=== PATIENT | female | born 1960 | race Caucasian/White ===

== ENCOUNTER 2016-11-23 13:37 | Emergency (ER) | payer MEDICARE, OTHER ==
[~2016-11-23] VITALS: Ht 157.5 cm; Wt 64.0 kg
[~2016-11-23 13:37] MED LIST: ACYCLOVIR800 MG PO; ALBUTEROL SUL0.083 % IN; AMOXICILLIN500 MG PO; ANAPROX275 MG OR; ATUSS DS OR; AZITHROMYCIN500 MG PO; BACTRIM DS1 TAB OR; CEFTIN500 MG PO; CIPROFLOXACN500 MG PO; COLACE100 MG OR; DENIES MEDICATIONS; DEPAKOTE500 MG OR; DILAUDID4 MG PO; DILAUDID8 MG OR; DOXYCYC MONO100 M1 OR; DOXYCYCL HYC100 MG PO; DUONEB IN; GABAPENTIN300 MG PO; HYDROMORPHON4 MG PO; HYDROMORPHON8 MG PO; LAXATIVE1 TAB OR; LEVAQUIN500 MG PO; LORTAB 5 OR; LORTAB5 OR; MAG CITRATE OR; MEDDOSEPAK PO; MELOXICAM15 MG PO; METAMUCIL28.3 % OR; METHADONE10 M1 PO; MIRALAX3350 NF OR; NEBULIZE1 XX; NEURONTIN400 MG PO; NEURONTIN600 MG PO; NO HOME MEDS; PAXIL20 MG OR; PHENERGAN25 M1 PR; PREDNISONE20 MG PO; PROAIR HFA IN; PROTONIX20 M1 PO; PROVENTIL HFA IN; REGLAN10 MG PO; RESTORIL30 MG OR; ROBITUSSIN AC10 ML PO; SEPTRA DS1 TAB PO; SEROQUEL100 MG OR; SEROQUEL300 MG OR; ULTRAM50 MG OR; VENTOLIN2 MG OR; VISTARIL50 MG OR; ZOFRAN ODT4 MG PO; ZOFRAN4 MG/TAB PO; ZOLOFT50 MG OR
[2016-11-23 14:30] LABS: HEMATOCRIT 36.6 % (37.0-47.0); IMMATURE GRANULOCYTES 0.2 % (0.0-1.0); MEAN CELL VOLUME 86.7 fL CALC (80.0-100.0); MEAN CORPUSCULAR HGB 28.4 pG CALC (26.0-32.0); MEAN CORPUSCULAR HGB CONC 32.8 g/L CALC (32.0-36.0); NEUT# 5.27 thou/uL (2.00-7.15); RED BLOOD COUNT 4.22 mill/uL (4.20-5.60); RED CELL DISTRI WIDTH 12.6 % (11.5-15.5)
[2016-11-23 14:40] LABS: ALBUMIN 4.1 g/dL (3.2-5.0); ALKALINE PHOSPHATASE 108 u/l (38-126); AMYLASE 68 u/l (30-110); ANION GAP 15 (6-22 (CALC)); BILIRUBIN, TOTAL 0.9 mg/dL (0.0-1.4); BUN 21 mg/dL (7-17); BUN/CREATININE RATIO 24 (12-20 (CALC)); CALCIUM 9.3 mg/dL (8.4-10.2); CARBON DIOXIDE 29 mmol/l (22-30); CHLORIDE 101 mmol/l (95-108); CREATININE 0.9 mg/dL (0.5-1.0); GFR > 60 ML/MIN (>=60 (CALC)); GFR FOR AFR.AMER. > 60 ML/MIN (>=60 (CALC)); GLUCOSE 94 mg/dL (65-105); LIPASE 56 u/l (23-300); POTASSIUM 4.7 mmol/l (3.5-5.1); SGOT/AST 61 u/l (14-36); SGPT/ALT 28 u/l (9-52); SODIUM 140 mmol/l (137-146); TOTAL PROTEIN 8.1 g/dL (6.3-8.2)
[2016-11-23 14:49] LABS: URINE BILIRUBIN - DIPSTICK NEGATIVE (NEGATIVE); URINE BLOOD DIPSTICK NEGATIVE (NEGATIVE); URINE CLARITY CLEAR; URINE COLOR YELLOW; URINE GLUCOSE - DIPSTICK NEGATIVE (NEGATIVE); URINE KETONE NEGATIVE (NEGATIVE); URINE LEUK ESTERASE NEGATIVE (NEGATIVE); URINE NITRITE - DIPSTICK NEGATIVE (Negative); URINE PROTEIN - DIPSTICK NEGATIVE (NEG-TRACE); URINE SPECIFIC GRAVITY >=1.030; URINE UROBILINOGEN - DIPSTICK 0.2 E.U./dL (0.2)
[2016-11-23 14:52] LABS: BARBITURATES NEGATIVE (NEGATIVE); COCAINE NEGATIVE (NEGATIVE); METHADONE NEGATIVE (NEGATIVE); TETRAHYDROCANNABIONOL NEGATIVE (NEGATIVE); TRICYLIC ANTIDEPRESSANTS NEGATIVE (NEGATIVE)
[2016-11-23 14:52] LABS: MYOGLOBIN 23 ng/mL (0 - 62)
[2016-11-23 14:53] LABS: OXCYCODONE POSITIVE (NEGATIVE)
[2016-11-23 15:05] VITALS: BP 110/76
== END 2016-11-23 15:05 | disposition left against medical advice (07) ==
LOC: ED 13:37 → ED-I 14:56 → ED 15:05
PROVIDERS: Emergency Medicine
DX: R07.9 Chest pain, unspecified (principal); I10 Essential (primary) hypertension; J44.9 Chronic obstructive pulmonary disease, unspecified; G89.29 Other chronic pain; F11.20 Opioid dependence, uncomplicated; M54.9 Dorsalgia, unspecified; F17.210 Nicotine dependence, cigarettes, uncomplicated; R11.0 Nausea; R06.00 Dyspnea, unspecified

== ENCOUNTER 2016-11-23 18:31 | Observation (INO) | payer MEDICARE, OTHER ==
[~2016-11-23] VITALS: Ht 157.5 cm; Wt 59.1 kg
--- NOTE | 2016-11-23 18:52 | NUR ---
PT TRIAGED, AMBULATES TO ROOM 10
--- NOTE | 2016-11-23 19:15 | NUR ---
PT REMAINS STABLE, RESTING WITH MONITOR IN PLACE. PT STATES SHE WENT HOME TO SHOWER. PT DENIES ANY ACUTE PAIN OR DISCOMFORT.
--- NOTE | 2016-11-23 19:42 | NUR ---
ATTEMPTED X 2 TO GET IV AFTER OTHER STAFF. BLOOD OBTAINED BUT UNABLE TO SAVE SITE
--- NOTE | 2016-11-23 19:45 | NUR ---
PT GIVEN COKE
[2016-11-23 20:01] LABS: ALBUMIN 3.9 g/dL (3.2-5.0); ALKALINE PHOSPHATASE 111 u/l (38-126); ANION GAP 13 (6-22 (CALC)); BILIRUBIN, TOTAL 0.5 mg/dL (0.0-1.4); BUN 24 mg/dL (7-17); BUN/CREATININE RATIO 26 (12-20 (CALC)); CALCIUM 9.1 mg/dL (8.4-10.2); CARBON DIOXIDE 29 mmol/l (22-30); CHLORIDE 102 mmol/l (95-108); CREATININE 0.9 mg/dL (0.5-1.0); GFR > 60 ML/MIN (>=60 (CALC)); GFR FOR AFR.AMER. > 60 ML/MIN (>=60 (CALC)); GLUCOSE 105 mg/dL (65-105); POTASSIUM 3.8 mmol/l (3.5-5.1); SGOT/AST 29 u/l (14-36); SGPT/ALT 30 u/l (9-52); SODIUM 140 mmol/l (137-146); TOTAL PROTEIN 7.4 g/dL (6.3-8.2)
--- NOTE | 2016-11-23 20:10 | NUR ---
PT RESTING, NO DISTRESS AT THIS TIME. PT REMAINS STABLE ON MONITOR.
--- NOTE | 2016-11-23 20:37 | NUR ---
SPOKE TO ADMITTING MD. STATED PT WOULD NOT BE GIVEN METHADONE/DILAUDID AT THIS FACILITY HOWEVER IF PT COULD BRING IT HERE IT WOULD BE ADMINISTERED TO HER.
--- NOTE | 2016-11-23 20:50 | NUR ---
PT DENIES TAKING ANY MEDS AT HOME. PT STATES SHE HASN'T TAKEN METHADONE OR DILAUDID SINCE LAST YEAR.
--- NOTE | 2016-11-23 21:19 | NUR ---
REPORT TO VIVIANE OLIVERA, DENIES ANY QUESTIONS UPON COMPLETION.
[2016-11-23 21:35] VITALS: BP 106/66
--- NOTE | 2016-11-23 21:35 | NUR ---
PT TRANSFERED TO MED SURG W/OUT INCIDENT. NURSING STAFF AT BEDSIDE. DENIES ANY QUESTION UPON COMPLETION. PT THANKED ME FOR MY CARE UPON COMPLETION.
--- NOTE | 2016-11-23 21:35 | NUR ---
RECEIVED PATIENT FROM THE ED IN STABLE CONDITION. PT ARRIVED BY STRETEHER ACCOMPANIED BY ED NURSE. PT SETTLED TO BED, AND ORIENTATE TO ENVIRONMENT, AND CALL SYSTEM. BED IN LOW POSITION AND CALL LIGHT IN REACH. PT DENIES CHEST PAINS. WILL CONTINUE TO MONITOR.
--- NOTE | 2016-11-24 | NUR ---
PATIENT RESTING QUIETLY WITH EYES CLOSED. NO ACUTE DISTRESS NOTED.
[2016-11-24 00:02] VITALS: BP 105/68
--- NOTE | 2016-11-24 04:00 | NUR ---
NO ACUTE CHANGES NOTED IN PATIENT'S CONDITION. LAYING IN BED AND APPEARS NOT TO BE IN ANY DISTRESS OR DISCOMFORT.
[2016-11-24 04:35] VITALS: BP 100/61
[2016-11-24 06:17] LABS: ANION GAP 14 (6-22 (CALC)); BUN 26 mg/dL (7-17); BUN/CREATININE RATIO 33 (12-20 (CALC)); CALCULATED LDLCHOLESTEROL 102 mg/dL (62-129 (CALC)); CARBON DIOXIDE 24 mmol/l (22-30); CHLORIDE 106 mmol/l (95-108); CREATININE 0.8 mg/dL (0.5-1.0); GFR > 60 ML/MIN (>=60 (CALC)); GFR FOR AFR.AMER. > 60 ML/MIN (>=60 (CALC)); GLUCOSE 87 mg/dL (65-105); HDL CHOLESTEROL 33 mg/dL (>=40); MAGNESIUM 1.8 mg/dL (1.6-2.3); POTASSIUM 4.3 mmol/l (3.5-5.1); SODIUM 140 mmol/l (137-146); TOTAL CHOLESTEROL 163 mg/dl (0-199); TOTAL TRIGLYCERIDES 140 mg/dl (30-149); VLDL CHOLESTROL 28 mg/dl (2-49 (CALC))
[2016-11-24 06:50] LABS: COCAINE NEGATIVE (NEGATIVE); METHADONE NEGATIVE (NEGATIVE); TETRAHYDROCANNABIONOL NEGATIVE (NEGATIVE)
[2016-11-24 06:51] LABS: BARBITURATES NEGATIVE (NEGATIVE); OXCYCODONE POSITIVE (NEGATIVE); TRICYLIC ANTIDEPRESSANTS NEGATIVE (NEGATIVE)
--- NOTE | 2016-11-24 07:21 | NUR ---
BEDSIDE REPORT RECEIVED FROM JOSELIN PAN. PT SITTING UPRIGHT IN BED. DENIES PAIN. REPORTING OF CONCERNS ENCOURAGED. PLAN OF CARE DISCUSSED. CALL LIGHT REVIEWED AND IN REACH. PT STATES UNDERSTANDING.
[2016-11-24 08:38] VITALS: BP 111/71
--- NOTE | 2016-11-24 08:52 | NUR ---
PT REPORTS " MELBA JUST BEEN FEELING SO TRIED AND NOT GOOD. I JUST GOT OUT OF A DETOX PLACE AND HAVENT FELT GOOD SINCE." PT STATES THE "DETOX" WAS FOR COMING OFF PAIN MEDICATIONS. INFORMATION REGARDING WITHDRAWL PROVIDED TO PT. PT REQUESTING TRAMADOL FOR GENERALIZED PAIN. PT INFORMED TYLENOL IS WHAT IS ORDERED AND SHOULD BE TRIED FIRST. PT REFUSING.
--- NOTE | 2016-11-24 11:16 | NUR ---
Patient decides to leave AMA. Multiple attempts made to ecourage patient to remain here for continued treatment. Explained to patient all risks of leaving against medical advice including . Pt verbalized understanding of all risks. Pt also encouraged to return to [facility] at any time, especially if symptoms continue or become worse. Pt verbalized understanding.
== END 2016-11-24 11:14 | disposition left against medical advice (07) ==
LOC: ED 18:31 → ED-I 20:30 → ED 20:44 → MS2 20:45
PROVIDERS: Emergency Medicine; ADMIT Internal Medicine; ATTEND Internal Medicine
DX: R07.9 Chest pain, unspecified (principal); I10 Essential (primary) hypertension; J44.9 Chronic obstructive pulmonary disease, unspecified; G89.29 Other chronic pain; M54.9 Dorsalgia, unspecified; F17.210 Nicotine dependence, cigarettes, uncomplicated; F11.20 Opioid dependence, uncomplicated; F41.9 Anxiety disorder, unspecified; F32.9 Major depressive disorder, single episode, unspecified; R11.0 Nausea; H53.9 Unspecified visual disturbance; R06.00 Dyspnea, unspecified; Z91.5 Personal history of self-harm

== ENCOUNTER 2017-07-27 16:25 | Emergency (ER) | payer MEDICARE, OTHER ==
[~2017-07-27] VITALS: Ht 157.5 cm; Wt 57.0 kg
[2017-07-27 17:24] LABS: HEMATOCRIT 36.4 % (37.0-47.0); IMMATURE GRANULOCYTES 0.4 % (0.0-1.0); MEAN CELL VOLUME 87.3 fL CALC (80.0-100.0); MEAN CORPUSCULAR HGB 28.8 pG CALC (26.0-32.0); NEUT# 16.97 thou/uL (2.00-7.15); RED BLOOD COUNT 4.17 mill/uL (4.20-5.60)
[2017-07-27 17:41] LABS: ALBUMIN 4.1 g/dL (3.2-5.0); ALKALINE PHOSPHATASE 130 u/l (38-126); ANION GAP 17 (6-22 (CALC)); BILIRUBIN, TOTAL 0.3 mg/dL (0.0-1.4); BUN 20 mg/dL (7-17); BUN/CREATININE RATIO 21 (12-20 (CALC)); CARBON DIOXIDE 23 mmol/l (22-30); CHLORIDE 107 mmol/l (95-108); CREATININE 0.9 mg/dL (0.5-1.0); GFR > 60 ML/MIN (>=60 (CALC)); GFR FOR AFR.AMER. > 60 ML/MIN (>=60 (CALC)); GLUCOSE 99 mg/dL (65-105); POTASSIUM 4.8 mmol/l (3.5-5.1); SGOT/AST 22 u/l (14-36); SGPT/ALT 18 u/l (9-52); SODIUM 143 mmol/l (137-146); TOTAL PROTEIN 7.1 g/dL (6.3-8.2)
[2017-07-27] MEDS ORDERED: MOTRIN800 MG PO (18:00)
[2017-07-27] MEDS ORDERED: CLINDAMYCIN300 M1 PO (18:00)
[2017-07-27 18:41] VITALS: BP 142/70
== END 2017-07-27 18:50 | disposition home or self-care (01) ==
LOC: ED 16:25
PROVIDERS: Emergency Medicine
DX: M54.2 Cervicalgia (principal); F17.210 Nicotine dependence, cigarettes, uncomplicated

== ENCOUNTER 2017-09-12 15:43 | Emergency (ER) | payer MEDICARE, OTHER ==
[~2017-09-12] VITALS: Ht 157.5 cm; Wt 55.4 kg
[~2017-09-12 15:43] MED LIST changes: +CLINDAMYCIN300 M1 PO; +MOTRIN800 MG PO
[2017-09-12 15:49] VITALS: BP 131/70
== END 2017-09-12 16:20 | disposition left against medical advice (07) ==
LOC: ED 15:43 → LWOBS 16:20
DX: Z91.19 Patient's noncompliance with other medical treatment and regimen (principal)

== ENCOUNTER 2017-12-26 22:42 | Observation (INO) | payer MEDICARE, OTHER ==
[~2017-12-26] VITALS: Ht 157.5 cm; Wt 55.5 kg
[2017-12-26 23:23] LABS: HEMATOCRIT 34.9 % (37.0-47.0); HEMOGLOBIN 11.5 g/dl (12.0-16.0); IMMATURE GRANULOCYTES 1.8 % (0.0-1.0); MEAN CELL VOLUME 84.9 fL CALC (80.0-100.0); NEUT# 8.86 thou/uL (2.00-7.15); RED BLOOD COUNT 4.11 mill/uL (4.20-5.60); RED CELL DISTRI WIDTH 13.8 % (11.5-15.5)
[2017-12-26 23:38] LABS: ALBUMIN 4.1 g/dL (3.2-5.0); BILIRUBIN, TOTAL 0.7 mg/dL (0.0-1.4); BUN 41 mg/dL (7-17); CARBON DIOXIDE 24 mmol/l (22-30); CHLORIDE 100 mmol/l (95-108); SGPT/ALT 466 u/l (9-52); SODIUM 136 mmol/l (137-146); TOTAL PROTEIN 7.7 g/dL (6.3-8.2)
[2017-12-26 23:42] LABS: ANION GAP 15 (6-22 (CALC)); BUN/CREATININE RATIO 22 (12-20 (CALC)); CREATININE 1.9 mg/dL (0.5-1.0); GFR 27 ML/MIN (>=60 (CALC)); GFR FOR AFR.AMER. 33 ML/MIN (>=60 (CALC)); POTASSIUM 3.3 mmol/l (3.5-5.1)
[2017-12-26 23:43] LABS: ALKALINE PHOSPHATASE 482 u/l (38-126); SGOT/AST 599 u/l (14-36)
[2017-12-26 23:48] LABS: MYOGLOBIN 54 ng/mL (0 - 62)
[2017-12-26 23:49] LABS: URINE BILIRUBIN - DIPSTICK NEGATIVE (NEGATIVE); URINE BLOOD DIPSTICK NEGATIVE (NEGATIVE); URINE COLOR YELLOW; URINE GLUCOSE - DIPSTICK NEGATIVE (NEGATIVE); URINE KETONE NEGATIVE (NEGATIVE); URINE LEUK ESTERASE NEGATIVE (NEGATIVE); URINE NITRITE - DIPSTICK NEGATIVE (Negative); URINE PROTEIN - DIPSTICK 30 mg/dL (NEG-TRACE); URINE SPECIFIC GRAVITY 1.025; URINE UROBILINOGEN - DIPSTICK 0.2 E.U./dL (0.2)
[2017-12-26 23:53] LABS: URINE CLARITY SL CLOUDY
[2017-12-27] VITALS (7 sets, daily range): BP systolic 97–153; BP diastolic 63–89
[2017-12-27 00:04] LABS: URINE BACTERIA MODERATE hpf; URINE RBC 0-2 RBC/hpf (0-5); URINE SQUAMOUS EPITHELIAL CELL MODERATE EPI/hpf (0-FEW); URINE WBC 0-2 WBC/hpf (0-5)
[2017-12-27 00:12] LABS: COCAINE NEGATIVE (NEGATIVE); TETRAHYDROCANNABIONOL NEGATIVE (NEGATIVE)
[2017-12-27 00:13] LABS: BARBITURATES NEGATIVE (NEGATIVE); METHADONE NEGATIVE (NEGATIVE); OXCYCODONE POSITIVE (NEGATIVE); TRICYLIC ANTIDEPRESSANTS POSITIVE (NEGATIVE)
[2017-12-27 01:38] LABS: AMYLASE 47 u/l (30-110); LIPASE 42 u/l (23-300)
[2017-12-27 09:42] LABS: CHOLESTEROL HDL RATIO 4.4 (<4.4 (CALC)); MAGNESIUM 1.6 mg/dL (1.6-2.3)
[2017-12-27 10:08] LABS: ALBUMIN 3.8 g/dL (3.2-5.0); BILIRUBIN, TOTAL 0.4 mg/dL (0.0-1.4); CREATININE 1.2 mg/dL (0.5-1.0); TOTAL PROTEIN 7.5 g/dL (6.3-8.2)
[2017-12-27 10:10] LABS: POTASSIUM 4.6 mmol/l (3.5-5.1)
[2017-12-28 04:03] VITALS: BP 115/70
[2017-12-28 04:41] LABS: PROTHROMBIN TIME 10.6 SECONDS (9.0-12.5)
[2017-12-28 04:46] LABS: ALBUMIN 3.2 g/dL (3.2-5.0); ALKALINE PHOSPHATASE 207 u/l (38-126); ANION GAP 11 (6-22 (CALC)); BILIRUBIN, TOTAL 0.2 mg/dL (0.0-1.4); BUN 23 mg/dL (7-17); BUN/CREATININE RATIO 27 (12-20 (CALC)); CARBON DIOXIDE 24 mmol/l (22-30); CHLORIDE 107 mmol/l (95-108); CREATININE 0.9 mg/dL (0.5-1.0); GFR > 60 ML/MIN (>=60 (CALC)); GFR FOR AFR.AMER. > 60 ML/MIN (>=60 (CALC)); POTASSIUM 4.9 mmol/l (3.5-5.1); SGOT/AST 153 u/l (14-36); SGPT/ALT 306 u/l (9-52); SODIUM 137 mmol/l (137-146); TOTAL PROTEIN 6.3 g/dL (6.3-8.2)
[2017-12-28 07:27] VITALS: BP 129/81
[2017-12-28 09:55] LABS: MEAN CELL VOLUME 87.3 fL CALC (80.0-100.0); MEAN CORPUSCULAR HGB 28.2 pG CALC (26.0-32.0); MEAN CORPUSCULAR HGB CONC 32.3 g/L CALC (32.0-36.0); RED BLOOD COUNT 3.55 mill/uL (4.20-5.60); RED CELL DISTRI WIDTH 14.2 % (11.5-15.5)
[2017-12-28] MEDS ORDERED: TRAMADOL HCL50 MG PO (12:25)
[2017-12-28 12:30] VITALS: BP 133/79
== END 2017-12-28 14:12 | disposition home or self-care (01) ==
LOC: ED 22:42 → ED-I 12-27 01:35 → ED 12-27 01:47 → MS2 12-27 01:48
PROVIDERS: Emergency Medicine; Internal Medicine; Nurse Practitioner Family; ADMIT Internal Medicine; ATTEND Internal Medicine
DX: K72.00 Acute and subacute hepatic failure without coma (principal); N17.9 Acute kidney failure, unspecified; B19.20 Unspecified viral hepatitis C without hepatic coma; J44.1 Chronic obstructive pulmonary disease with (acute) exacerbation; E87.6 Hypokalemia; F17.210 Nicotine dependence, cigarettes, uncomplicated; K59.09 Other constipation; E86.0 Dehydration; F11.23 Opioid dependence with withdrawal

== ENCOUNTER 2018-03-04 16:52 | Emergency (ER) | payer MEDICARE, OTHER ==
[~2018-03-04] VITALS: Ht 157.5 cm; Wt 56.0 kg
[~2018-03-04 16:52] MED LIST changes: +TRAMADOL HCL50 MG PO
[2018-03-04 18:08] LABS: URINE BILIRUBIN - DIPSTICK NEGATIVE (NEGATIVE); URINE BLOOD DIPSTICK NEGATIVE (NEGATIVE); URINE COLOR YELLOW; URINE GLUCOSE - DIPSTICK NEGATIVE (NEGATIVE); URINE KETONE NEGATIVE (NEGATIVE); URINE LEUK ESTERASE NEGATIVE (NEGATIVE); URINE NITRITE - DIPSTICK NEGATIVE (Negative); URINE PROTEIN - DIPSTICK TRACE mg/dL (NEG-TRACE); URINE SPECIFIC GRAVITY >=1.030; URINE UROBILINOGEN - DIPSTICK 0.2 E.U./dL (0.2)
[2018-03-04 18:10] LABS: URINE CLARITY CLEAR
[2018-03-04 18:14] LABS: IMMATURE GRANULOCYTES 0.4 % (0.0-5.0); MEAN CELL VOLUME 85.3 fL CALC (80.0-100.0); MEAN CORPUSCULAR HGB 27.9 pG CALC (26.0-32.0); MEAN CORPUSCULAR HGB CONC 32.8 g/L CALC (32.0-36.0); NEUT# 5.51 thou/uL (2.00-7.15); RED BLOOD COUNT 4.69 mill/uL (4.20-5.60); RED CELL DISTRI WIDTH 12.6 % (11.5-15.5)
[2018-03-04 18:17] LABS: HEMOGLOBIN 13.1 g/dl (12.0-16.0)
[2018-03-04 18:21] LABS: COCAINE NEGATIVE (NEGATIVE); METHADONE POSITIVE (NEGATIVE); TETRAHYDROCANNABIONOL NEGATIVE (NEGATIVE)
[2018-03-04 18:22] LABS: BARBITURATES NEGATIVE (NEGATIVE); OXCYCODONE POSITIVE (NEGATIVE); TRICYLIC ANTIDEPRESSANTS NEGATIVE (NEGATIVE)
[2018-03-04 18:33] LABS: ALKALINE PHOSPHATASE 128 u/l (38-126); AMYLASE 81 u/l (30-110); ANION GAP 18 (6-22 (CALC)); BILIRUBIN, TOTAL 0.5 mg/dL (0.0-1.4); BUN 22 mg/dL (7-17); BUN/CREATININE RATIO 20 (12-20 (CALC)); CARBON DIOXIDE 27 mmol/l (22-30); CHLORIDE 98 mmol/l (95-108); CREATININE 1.1 mg/dL (0.5-1.0); GFR 51 ML/MIN (>=60 (CALC)); GFR FOR AFR.AMER. > 60 ML/MIN (>=60 (CALC)); LIPASE 50 u/l (23-300); POTASSIUM 4.2 mmol/l (3.5-5.1); SGPT/ALT 30 u/l (9-52); SODIUM 139 mmol/l (137-146)
[2018-03-04 18:34] LABS: ALBUMIN 4.7 g/dL (3.2-5.0); SGOT/AST 28 u/l (14-36)
[2018-03-04 18:41] LABS: MYOGLOBIN 31 ng/mL (0 - 62)
[2018-03-04 21:31] VITALS: BP 120/91
== END 2018-03-04 19:45 | disposition left against medical advice (07) ==
LOC: ED 16:52
PROVIDERS: Emergency Medicine
DX: R22.1 Localized swelling, mass and lump, neck (principal); M54.9 Dorsalgia, unspecified; J44.9 Chronic obstructive pulmonary disease, unspecified; B19.20 Unspecified viral hepatitis C without hepatic coma; F17.210 Nicotine dependence, cigarettes, uncomplicated; F19.10 Other psychoactive substance abuse, uncomplicated; Z91.19 Patient's noncompliance with other medical treatment and regimen

== ENCOUNTER 2018-05-04 20:43 | Emergency (ER) | payer MEDICARE, OTHER ==
[~2018-05-04] VITALS: Ht 157.5 cm; Wt 50.0 kg
[2018-05-04 21:39] LABS: URINE BILIRUBIN - DIPSTICK NEGATIVE (NEGATIVE); URINE BLOOD DIPSTICK NEGATIVE (NEGATIVE); URINE COLOR YELLOW; URINE GLUCOSE - DIPSTICK NEGATIVE (NEGATIVE); URINE KETONE NEGATIVE (NEGATIVE); URINE LEUK ESTERASE NEGATIVE (NEGATIVE); URINE NITRITE - DIPSTICK NEGATIVE (Negative); URINE PROTEIN - DIPSTICK >=300 mg/dL (NEG-TRACE)
[2018-05-04 21:44] LABS: HEMATOCRIT 45.8 % (37.0-47.0); HEMOGLOBIN 14.7 g/dl (12.0-16.0); IMMATURE GRANULOCYTES 0.3 % (0.0-5.0); MEAN CELL VOLUME 86.7 fL CALC (80.0-100.0); MEAN CORPUSCULAR HGB 27.8 pG CALC (26.0-32.0); MEAN CORPUSCULAR HGB CONC 32.1 g/L CALC (32.0-36.0); NEUT# 10.67 thou/uL (2.00-7.15); RED BLOOD COUNT 5.28 mill/uL (4.20-5.60)
[2018-05-04 21:45] LABS: URINE CLARITY CLEAR
[2018-05-04 21:47] LABS: BARBITURATES NEGATIVE (NEGATIVE); COCAINE NEGATIVE (NEGATIVE); METHADONE NEGATIVE (NEGATIVE); TETRAHYDROCANNABIONOL NEGATIVE (NEGATIVE); TRICYLIC ANTIDEPRESSANTS NEGATIVE (NEGATIVE)
[2018-05-04 21:48] LABS: OXCYCODONE POSITIVE (NEGATIVE)
[2018-05-04 21:59] LABS: URINE SQUAMOUS EPITHELIAL CELL MODERATE EPI/hpf (0-FEW)
[2018-05-04 22:17] LABS: ALBUMIN 4.4 g/dL (3.2-5.0); ALKALINE PHOSPHATASE 94 u/l (38-126); AMYLASE 82 u/l (30-110); ANION GAP 16 (6-22 (CALC)); BILIRUBIN, TOTAL 0.6 mg/dL (0.0-1.4); BUN 19 mg/dL (7-17); BUN/CREATININE RATIO 23 (12-20 (CALC)); CARBON DIOXIDE 26 mmol/l (22-30); CHLORIDE 102 mmol/l (95-108); CREATININE 0.9 mg/dL (0.5-1.0); GFR > 60 ML/MIN (>=60 (CALC)); GFR FOR AFR.AMER. > 60 ML/MIN (>=60 (CALC)); LIPASE 78 u/l (23-300); SGOT/AST 18 u/l (14-36); SODIUM 141 mmol/l (137-146); TOTAL PROTEIN 8.1 g/dL (6.3-8.2)
[2018-05-04] MEDS ORDERED: PHENERGAN25 MG RE (22:46)
[2018-05-04 23:15] VITALS: BP 103/74
== END 2018-05-04 23:14 | disposition home or self-care (01) ==
LOC: ED 20:43
PROVIDERS: Family Medicine
DX: A08.4 Viral intestinal infection, unspecified (principal); J44.9 Chronic obstructive pulmonary disease, unspecified; F17.210 Nicotine dependence, cigarettes, uncomplicated; B19.20 Unspecified viral hepatitis C without hepatic coma

== ENCOUNTER 2018-05-17 19:40 | Emergency (ER) | payer MEDICARE, OTHER ==
[~2018-05-17] VITALS: Ht 157.5 cm; Wt 53.8 kg
[~2018-05-17 19:40] MED LIST changes: +PHENERGAN25 MG RE
[2018-05-17] MEDS ORDERED: MIRALAX3350 N1 PO (22:37)
[2018-05-17] MEDS ORDERED: FLEET ENEMA RE (22:39)
[2018-05-17 22:50] VITALS: BP 99/59
== END 2018-05-17 22:50 | disposition home or self-care (01) ==
LOC: ED 19:40
DX: K59.00 Constipation, unspecified (principal); N81.6 Rectocele; R10.2 Pelvic and perineal pain; R11.2 Nausea with vomiting, unspecified; F17.290 Nicotine dependence, other tobacco product, uncomplicated; R10.84 Generalized abdominal pain; R33.9 Retention of urine, unspecified

== ENCOUNTER 2018-05-19 17:35 | Emergency (ER) | payer MEDICARE, OTHER ==
[~2018-05-19] VITALS: Ht 157.5 cm; Wt 52.7 kg
[~2018-05-19 17:35] MED LIST changes: +FLEET ENEMA RE; +MIRALAX3350 N1 PO
[2018-05-19 20:02] VITALS: BP 127/71
[2018-05-19] MEDS ORDERED: GOLYTELY4000 ML PO (20:03)
[2018-05-19] MEDS ORDERED: TRAMADOL HCL50 MG PO (20:03)
== END 2018-05-19 20:02 | disposition home or self-care (01) ==
LOC: ED 17:35
DX: N81.6 Rectocele (principal); K59.00 Constipation, unspecified; J44.9 Chronic obstructive pulmonary disease, unspecified; B19.20 Unspecified viral hepatitis C without hepatic coma; F17.200 Nicotine dependence, unspecified, uncomplicated

== ENCOUNTER 2018-06-29 18:30 | Emergency (ER) | payer MEDICARE, OTHER ==
[~2018-06-29] VITALS: Ht 157.5 cm; Wt 55.0 kg
[~2018-06-29 18:30] MED LIST changes: +GOLYTELY4000 ML PO
[2018-06-29 18:59] VITALS: BP 133/94
== END 2018-06-29 21:15 | disposition left against medical advice (07) ==
LOC: ED 18:30 → LWOBS 21:14
DX: Z91.19 Patient's noncompliance with other medical treatment and regimen (principal)

== ENCOUNTER 2019-05-22 16:48 | Emergency (ER) | payer MEDICARE, OTHER ==
[~2019-05-22] VITALS: Ht 157.5 cm; Wt 63.0 kg
[2019-05-22] MEDS ORDERED: ELIMITE52 TOP (17:33)
[2019-05-22] MEDS ORDERED: KEFLEX500 M1 PO (17:33)
[2019-05-22 17:35] VITALS: BP 130/95
== END 2019-05-22 17:35 | disposition home or self-care (01) ==
LOC: ED 16:48
DX: L01.00 Impetigo, unspecified (principal); B86 Scabies; B19.20 Unspecified viral hepatitis C without hepatic coma; F17.210 Nicotine dependence, cigarettes, uncomplicated; J44.9 Chronic obstructive pulmonary disease, unspecified

== ENCOUNTER 2019-06-02 20:20 | Observation (INO) | payer MEDICARE, OTHER ==
[~2019-06-02] VITALS: Ht 157.5 cm; Wt 55.9 kg
[~2019-06-02 20:20] MED LIST changes: +ELIMITE52 TOP; +KEFLEX500 M1 PO
--- NOTE | 2019-06-02 20:56 | NUR ---
TO TX ROOM
--- NOTE | 2019-06-02 21:10 | NUR ---
#20 IV INITIATED TO LFA X 2 ATTEMPTS. FINISHED METAL REPAIRER BEDSIDE TO RETRIEVE BLOOD SAMPLES. PT ADMITS TO USING IV OPANA AND DILAUDID TODAY. PT BEING GIVEN NEB TX BY RT. AUDIBLE WHEEZING NOTED. PLAN OF CARE DISCUSSED.
[2019-06-02 21:23] LABS: IMMATURE GRANULOCYTES 0.2 % (0.0-5.0); MEAN CELL VOLUME 87.8 fL CALC (80.0-100.0); MEAN CORPUSCULAR HGB 28.7 pG CALC (26.0-32.0); MEAN CORPUSCULAR HGB CONC 32.7 g/L CALC (32.0-36.0); NEUT# 7.67 thou/uL (2.00-7.15); RED BLOOD COUNT 3.69 mill/uL (4.20-5.60); RED CELL DISTRI WIDTH 12.8 % (11.5-15.5)
[2019-06-02 21:24] LABS: HEMATOCRIT 32.4 % (37.0-47.0); HEMOGLOBIN 10.6 g/dl (12.0-16.0)
--- NOTE | 2019-06-02 22:02 | NUR ---
RECEIVED REPORT. AWAITING RADIOLOGY RESULTS
--- NOTE | 2019-06-02 22:25 | NUR ---
DISCUSSED FINDINGS AND PLAN OF CARE. PT AGREE TO ADMISSION
[2019-06-02] MEDS ORDERED: CEPHALEXIN500 MG PO (22:26)
[2019-06-02] MEDS ORDERED: HYDROXYZ HCL10 MG PO (22:26)
--- NOTE | 2019-06-02 22:28 | NUR ---
JUICE AND CRACKERS GIVEN
--- NOTE | 2019-06-02 22:40 | NUR ---
CALLED MS FOR REPORT. NURSE TO CALL BACK
--- NOTE | 2019-06-02 22:52 | NUR ---
REPORT CALLED TO [facility]
--- NOTE | 2019-06-02 22:58 | NUR ---
TO MS VIA W/C. PT TALKATIVE. NO DISTRESS NOTED
[2019-06-02 23:00] VITALS: BP 114/70
--- NOTE | 2019-06-02 23:00 | NUR ---
PT ARRIVED TO MED SURG UNIT VIA WC ACCOMPANIED BY ED NURSE. PT APPEARS TO BE IN STABLE CONDITION. ELECTRONIC WARFARE OFFICER IN W/PT AT THIS TIME OBTAINING WEIGHT, V/S AND ORIENTING PT TO ROOM, CALL SYSTEM, LIGHTS, BED AND TV. WILL FOLLOW-UP W/ASSESSMENT AND ADMISSION.
[2019-06-03 01:05] VITALS: BP 114/70
--- NOTE | 2019-06-03 01:15 | NUR ---
ENTERED PT ROOM TO ADMINISTER MUSCLE RELAXANT/REQUEST FOR MUSCLE CRAMPS AND PT IS SLEEPING SOUNDLY, PT DID NOT AWAKE TO MY ENTERING ROOM.
[2019-06-03 04:44] VITALS: BP 98/50
--- NOTE | 2019-06-03 04:55 | NUR ---
PT SLEEPING AT THIS TIME. PT MEDICATED ORDERS PROVIDE BUT QUICKLY RETURNED TO SLEEP PRIOR TO MY LEAVING ROOM. NO S/O DISTRESS NOTED.
--- NOTE | 2019-06-03 07:00 | NUR ---
REPORT RECEIVED FROM ARMINDA. PT IS RESTING IN BED WITH NO S/S OF DISTRESS NOTED. PT DENIES NEEDS AT THIS TIME. CALL LIGHT IN REACH.
[2019-06-03 07:38] VITALS: BP 113/66
--- NOTE | 2019-06-03 09:10 | NUR ---
ASSESSMENT DONE. PT IS A&O X3. RESPS EVEN AND UNLABORED. PT STATED PAIN IN BACK AND NECK. MEDICATED PT WITH MOTRIN AND FLEXERIL. PT DENIES ANY OTHER NEEDS AT THIS TIME. CALL LIGHT IN REACH.
--- NOTE | 2019-06-03 10:18 | NUR ---
Patient decides to leave AMA. Explained to patient all risks of leaving against medical Pt verbalized understanding of all risks. Pt also encouraged to return to [facility] at any time, especially if symptoms continue or become worse. Pt verbalized understanding.
--- NOTE | 2019-06-03 10:57 | NUR ---
NOTIFIED NASREEN LAMAR RE: PT LEFT AMA.
== END 2019-06-03 10:18 | disposition left against medical advice (07) ==
LOC: ED 20:20 → ED-I 22:35 → ED 22:40 → MS2 22:42 → ED 22:42 → MS2 06-03 10:18
PROVIDERS: Family Medicine; ADMIT Internal Medicine; ATTEND Internal Medicine
DX: J98.01 Acute bronchospasm (principal); R06.02 Shortness of breath; R05 Cough; R42 Dizziness and giddiness; R53.1 Weakness; J44.9 Chronic obstructive pulmonary disease, unspecified; B19.20 Unspecified viral hepatitis C without hepatic coma; F17.200 Nicotine dependence, unspecified, uncomplicated
CPT/HCPCS: G0378

== ENCOUNTER 2019-09-05 | Emergency (ER) | payer MEDICARE, OTHER ==
[~2019-09-05] MED LIST changes: +CEPHALEXIN500 MG PO; +HYDROXYZ HCL10 MG PO
--- NOTE | 2019-09-05 20:53 | NUR ---
BREATHING TREATMENT GIVEN BACK TO BACK. BREATHING TECH, FOR GOOD DEPOSITION TO THE LUNGS.
[2019-09-05 21:28] LABS: HEMATOCRIT 36.2 % (37.0-47.0); HEMOGLOBIN 11.6 g/dl (12.0-16.0); IMMATURE GRANULOCYTES 0.7 % (0.0-5.0); MEAN CORPUSCULAR HGB 26.1 pG CALC (26.0-32.0); NEUT# 4.92 thou/uL (2.00-7.15); RED BLOOD COUNT 4.44 mill/uL (4.20-5.60); RED CELL DISTRI WIDTH 13.8 % (11.5-15.5)
[2019-09-05 21:38] LABS: MEAN CELL VOLUME 81.5 fL CALC (80.0-100.0)
[2019-09-05 21:42] LABS: ACT PARTIAL THROMBO TIME 29.6 SECONDS (20.0-32.5); D-DIMER 0.31 mg/L (0.19-0.60); PROTHROMBIN TIME 10.7 SECONDS (9.0-12.5)
[2019-09-05 21:57] LABS: ALBUMIN 4.6 g/dL (3.2-5.0); ALKALINE PHOSPHATASE 107 u/l (38-126); BILIRUBIN, TOTAL 0.5 mg/dL (0.0-1.4); BUN 26 mg/dL (7-17); BUN/CREATININE RATIO 22 (12-20 (CALC)); CHLORIDE 100 mmol/l (95-108); CREATININE 1.2 mg/dL (0.5-1.0); GFR 46 ML/MIN (>=60 (CALC)); GFR FOR AFR.AMER. 56 ML/MIN (>=60 (CALC)); POTASSIUM 3.9 mmol/l (3.5-5.1); TOTAL PROTEIN 8.7 g/dL (6.3-8.2)
[2019-09-05 22:01] LABS: ANION GAP 17 (6-22 (CALC)); CARBON DIOXIDE 20 mmol/l (22-30); SGOT/AST 34 u/l (14-36); SODIUM 133 mmol/l (137-146)
[2019-09-05 22:09] LABS: MYOGLOBIN 256 ng/mL (0 - 62)
[2019-09-05] MEDS ORDERED: ROBAXIN-750750 MG PO ×2 (23:18)
[2019-09-05] MEDS ORDERED: ALBUTEROL SUL0.083 % IN ×2 (23:18)
[2019-09-05] MEDS ORDERED: VENTOLIN HFA IN ×2 (23:18)
== END 2019-09-05 23:40 | disposition home or self-care (01) ==
PROVIDERS: Family Medicine
DX: R25.2 Cramp and spasm (principal); J44.1 Chronic obstructive pulmonary disease with (acute) exacerbation; F17.200 Nicotine dependence, unspecified, uncomplicated

== ENCOUNTER 2020-01-10 23:18 | Emergency (ER) | payer MEDICARE, OTHER ==
[~2020-01-10] VITALS: Ht 157.5 cm; Wt 59.0 kg
[~2020-01-10 23:18] MED LIST changes: +ROBAXIN-750750 MG PO; +VENTOLIN HFA IN
[2020-01-10] MEDS ORDERED: VENTOLIN HFA IN ×2 (23:52)
[2020-01-10] MEDS ORDERED: ALBUTEROL SUL0.083 % IN ×2 (23:52)
--- NOTE | 2020-01-11 00:22 | NUR ---
BREATHING TREATMENT GIVEN.
[2020-01-11 00:53] VITALS: BP 152/68
== END 2020-01-11 01:05 | disposition home or self-care (01) ==
LOC: ED 23:18
DX: J44.1 Chronic obstructive pulmonary disease with (acute) exacerbation (principal); L98.9 Disorder of the skin and subcutaneous tissue, unspecified; F17.200 Nicotine dependence, unspecified, uncomplicated

== ENCOUNTER 2020-03-04 01:32 | Observation (INO) | payer MEDICARE, OTHER ==
[~2020-03-04] VITALS: Ht 157.5 cm; Wt 52.2 kg
--- NOTE | 2020-03-04 01:42 | NUR ---
PATIENT AMBULATORY TO ROOM 9 FOR BEDSIDE TRIAGE.
[2020-03-04 02:13] LABS: HEMATOCRIT 32.6 % (37.0-47.0); HEMOGLOBIN 10.8 g/dl (12.0-16.0); IMMATURE GRANULOCYTES 0.5 % (0.0-5.0); MEAN CELL VOLUME 78.7 fL CALC (80.0-100.0); MEAN CORPUSCULAR HGB 26.1 pG CALC (26.0-32.0); MEAN CORPUSCULAR HGB CONC 33.1 g/dL CAL (32.0-36.0); NEUT# 12.67 thou/uL (2.00-7.15); RED BLOOD COUNT 4.14 mill/uL (4.20-5.60); RED CELL DISTRI WIDTH 13.6 % (11.5-15.5)
[2020-03-04 02:30] LABS: ALBUMIN 4.2 g/dL (3.2-5.0); ALKALINE PHOSPHATASE 117 u/l (38-126); AMYLASE 60 u/l (30-110); BUN 26 mg/dL (7-17); BUN/CREATININE RATIO 21 (12-20 (CALC)); CHLORIDE 88 mmol/l (95-108); CREATININE 1.2 mg/dL (0.5-1.0); GFR 46 ML/MIN (>=60 (CALC)); GFR FOR AFR.AMER. 56 ML/MIN (>=60 (CALC)); LIPASE 30 u/l (23-300); SGOT/AST 32 u/l (14-36); TOTAL PROTEIN 8.4 g/dL (6.3-8.2)
[2020-03-04 02:32] LABS: ANION GAP 17 (6-22 (CALC)); BILIRUBIN, TOTAL 0.9 mg/dL (0.0-1.4); CARBON DIOXIDE 25 mmol/l (22-30); SODIUM 126 mmol/l (137-146)
[2020-03-04 02:38] LABS: MYOGLOBIN 130 ng/mL (0 - 62)
--- NOTE | 2020-03-04 02:39 | NUR ---
PT CALMER...DR WAS IN TO DISCUSS ADMISSION.. PT OK WITH ADMISSION. PT FEELS BETTER AFTER THE MORPHINE/NORFLEX.
--- NOTE | 2020-03-04 02:45 | NUR ---
PT REFUSED COVID/FLU SWABS STATES SHE WAS TESTED A FEW MONTHS AGO AN IT HURT.
[2020-03-04 03:03] LABS: URINE BLOOD DIPSTICK SMALL (NEGATIVE); URINE COLOR YELLOW; URINE GLUCOSE - DIPSTICK NEGATIVE (NEGATIVE); URINE KETONE NEGATIVE (NEGATIVE); URINE LEUK ESTERASE TRACE (NEGATIVE); URINE PH 5.5 (4.5-8.0); URINE PROTEIN - DIPSTICK 100 mg/dL (NEG-TRACE); URINE SPECIFIC GRAVITY >=1.030
[2020-03-04 03:10] LABS: URINE BILIRUBIN - DIPSTICK SMALL (NEGATIVE)
[2020-03-04 03:11] LABS: URINE NITRITE - DIPSTICK NEGATIVE (Negative)
[2020-03-04 03:15] LABS: URINE BACTERIA MODERATE hpf; URINE EPITHELIAL CELLS MANY EPI/hpf (0-FEW); URINE MUCUS MODERATE hpf (NONE-FEW)
--- NOTE | 2020-03-04 03:44 | NUR ---
WAITING FOR RAPID COVID TEST TO BE RESULTED.
--- NOTE | 2020-03-04 03:50 | NUR ---
PT REQUESTED SODA/COKE BROUGHT TO ROOM. LIGHTS DIMMED. BED REPOSITIONED FOR COMFORT.
--- NOTE | 2020-03-04 04:22 | NUR ---
PT STATES PAIN IS 610...FALLING ASLEEP SHE SPEAKS. REPORT TO ARMINDA/JOSELIN/MED-SURG.
--- NOTE | 2020-03-04 04:37 | NUR ---
PT UPSET ABOUT BEING PLACED IN COVID PEREIRA. ADULT PROBATION OFFICER AT BEDSIDE.
--- NOTE | 2020-03-04 04:45 | NUR ---
TO FLOOR VIA W/C WITH BELONGINGS. PT MASKED FOR COVID PRECAUTIONS. TO [facility]. NAD. AMBULATORY UPON ARRIVAL TO FLOOR.
--- NOTE | 2020-03-04 04:45 | NUR ---
PT ARRIVED TO MED SURG UNIT VIA WC ACCOMPANIED BY ED NURSE. PT C/O BEING PLACED IN RESPIRATORY PEREIRA, I DISCUSSED THE RISK AND PRECAUTIONS WITH THE PT. PT IS ASKING IF "THE DOCTOR UP HERE ORDERED ANYTHING FOR PAIN?" AND IS ALSO ASKING FOR FOOD AT THIS TIME. PT APPEARS ANXIOUS. DRINKS PROVIDED AND I DISCUSSED MEDICATION SCHEDULE ORDERED W/PT, VERBALIZED UNDERSTANDING. PT IS MOVING AROUND IN THE BED AND ASKING FOR FOOD AGAIN, I INFORMED PT THAT WE WILL PROVIDE SOMETHING TO EAT SOON WE GET HER SETTLED AND ADMISSION/ASSESSMENT COMPLETED. PT VERBALIZED UNDERSTANDING.
[2020-03-04 04:55] VITALS: BP 111/65
--- NOTE | 2020-03-04 05:15 | NUR ---
PT PROVIDED COKE AND TV DINNER PER REQUEST AND ADVISED ON LIGHTING IN ROOM, BSC AT BEDSIDE FOR SAFETY.
--- NOTE | 2020-03-04 07:10 | NUR ---
REPORT RECEIVED FROM JOSELIN HILLIARD.
[2020-03-04 08:28] VITALS: BP 100/57
--- NOTE | 2020-03-04 08:30 | NUR ---
PT RESTING IN SUPINE POSITION,A&O X3 AND DROWSY;VS OBTAINED AND ASSESSMENT COMPLETED;PT REPORTS "RIB/LUNG" PAIN BUT IS UNABLE TO REPORT PAIN LEVEL,PAIN SCALE AND REPORTING EDUCATED;RESPIRATIONS EVEN AND UNLABORED ON O2 @ 2L VIA NC, PT IS NOT O2 DEPENDENT;NON-PRODUCTIVE COUGH AT TIMES;ABDOMEN SOFT ON PALPATION AND ACTIVE IN ALL 4 QUADRANTS, PT DOES NOT REPORT ANY PAIN OR TENDERNESS ON PALPATION;STRONG PEDAL PULSES;OLD/HEALING SCABS NOTED THROUGHOUT BODY;TELE MONITORING IN PLACE;#20G TO RAC INFUSING NS @ 125ML/HR,SITE APPEARS HEALTHY;PT DENIES ANY ADDITIONAL NEEDS AT THIS TIME AND IS ENCOURAGED TO CALL FOR ASSSISTANCE IF NEEDED;CALL LIGHT IN REACH;WILL CONTINUE TO MONITOR
--- NOTE | 2020-03-04 09:51 | NUR ---
PT TRANSPORTED TO [facility] IN STABLE CONDITION VIA WHEELCHAIR ACCOMPANIED BY CORI CROUCH.
--- NOTE | 2020-03-04 09:56 | NUR ---
PT RETURNED BACK TO MED/SURG ROOM 282 IN STABLE CONDITION VIA WHEELCHAIR ACCOMPANIED BY CORI CROUCH.
--- NOTE | 2020-03-04 10:15 | NUR ---
PT REPORTS "LUNG" PAIN AND REQUESTS PAIN MEDICATION, SHEREEN ANRP NOTIFIED OF REQUEST;AWAITING NEW ORDERS;WILL CONTINUE TO MONITOR
[2020-03-04 10:58] VITALS: BP 121/70
--- NOTE | 2020-03-04 11:20 | NUR ---
PT RESTING IN SUPINE POSITION;RESPIRATIONS EVEN AND UNLABORED ON RA;PT REPORTS "RIB" PAIN RATING 9/10 ON THE PAIN SCALE, PT MEDICATED WITH PRN TORADOL 15MG IVP AT THIS TIME;IV FLUIDS CONTINUE TO INFUSE WITH EASE PER ORDER;TELE MONITORING IN PLACE;PT DENIES ANY ADDITIONAL NEEDS AT THIS TIME;ASSESSMENT REMAINS UNCHANGED;FALL PRECAUTIONS REMAIN IN PLACE WITH BED IN THE LOWEST POSITION AND CALL LIGHT IN REACH;WILL CONTINUE TO MONITOR
--- NOTE | 2020-03-04 12:18 | NUR ---
PT CRYING IN BED REPORTING THAT RIB/UPPER ABDOMINAL PAIN HAS NOT BEEN RELEIVED BY PRN TORADOL, PT STATES " I WANNA LEAVE SO I CAN GET MY OWN MEDICATION FROM HOME", PT EDUCATED ON RISKS OF LEAVING [facility] AMA INCLUDING RISKS OF AND VERBALIZES UNDERSTANDING;SHEREEN ANRP NOTIFIED.
[2020-03-04 12:25] LABS: ANION GAP 15 (6-22 (CALC)); BUN 30 mg/dL (7-17); BUN/CREATININE RATIO 33 (12-20 (CALC)); CARBON DIOXIDE 21 mmol/l (22-30); CHLORIDE 98 mmol/l (95-108); CREATININE 0.9 mg/dL (0.5-1.0); GFR > 60 ML/MIN (>=60 (CALC)); GFR FOR AFR.AMER. > 60 ML/MIN (>=60 (CALC)); POTASSIUM 3.8 mmol/l (3.5-5.1); SODIUM 131 mmol/l (137-146)
--- NOTE | 2020-03-04 12:28 | NUR ---
AMA FORMED SIGNED AT THIS TIME WITH WITNESS BY STEPHANIE,JOSELIN;PT EDUCATED ON ELEVATED DDIMER AND THE POSSIBILITY OF HAVING A BLOOD CLOT, PT ENCOURAGED TO STAY AT [facility] FOR FURTHER TESTING SUCH A CTA BUT REFUSES;PT RE-EDUCATED ON THE RISKS OF IF SHE WERE TO HAVE A BLOOD CLOT IN HER LUNGS AND VERBALIZES UNDERSTANDING STATING "I UNDERSTANDING, I NEED TO GO TAKE MY PILLS AT HOME AND ILL COME BACK TO ER";RX FOR LEVAQUIN PROVIDED BY PROVIDER;IV SITE REMOVED WITH CATHETER INTACT AND TELE MONITORING D/C AT THIS TIME;
[2020-03-04] MEDS ORDERED: LEVAQUIN750 MG PO (12:32)
--- NOTE | 2020-03-04 12:37 | NUR ---
Patient decides to leave AMA. Multiple attempts made to ecourage patient to remain here for continued treatment. Explained to patient all risks of leaving against medical advice including . Pt verbalized understanding of all risks. Pt also encouraged to return to [facility] at any time, especially if symptoms continue or become worse. Pt verbalized understanding.
--- NOTE | 2020-03-04 12:37 | NUR ---
SHEREEN ANJAYCOB NOTIFIED OF AMA BY PT;PT LEFT AT THIS TIME VIA WHEELCHAIR ACCOMPANIED BY CORI CROUCH TO LOBBY, FRIEND TO TRANSPORT PT HOME.
--- NOTE | 2020-03-05 08:08 | NUR ---
PRELIM BLOOD CX RESULTS SHOW GRAM POSITIVE COCCI. PT LEFT AMA. RESULTS CALLED TO DR GARCIA. CALLED PT, NO ANSWER, NO VM SET UP. WILL TRY AGAIN THIS AFTERNOON.
--- NOTE | 2020-03-05 14:00 | NUR ---
JUST CALLED PT AGAIN RE BLOOD CX RESULTS. PT ANSWERED THE PHONE, I INTRODUCED MYSELF, AND SHE SAID "I DON'T NEED ANY OF YOUR MEDICINE." I ASKED IF SHE HAD THE ABX FILLED, SHE SAID NO AND THAT SHES IN ANOTHER HOSPITAL NOW. I ASKED WHICH HOSPITAL, SHE TOLD ME IN [facility] AND [facility] UP ON ME.
== END 2020-03-04 12:37 | disposition left against medical advice (07) ==
LOC: ED 01:32 → ED-I 03:24 → ED 03:38 → MS2 03:39
PROVIDERS: Emergency Medicine; Nurse Practitioner; ADMIT Internal Medicine; ATTEND Internal Medicine
DX: E87.1 Hypo-osmolality and hyponatremia (principal); R25.2 Cramp and spasm; R07.81 Pleurodynia; N28.9 Disorder of kidney and ureter, unspecified; R06.02 Shortness of breath; D72.829 Elevated white blood cell count, unspecified; J44.9 Chronic obstructive pulmonary disease, unspecified; F11.20 Opioid dependence, uncomplicated; R78.81 Bacteremia; M19.90 Unspecified osteoarthritis, unspecified site; F17.210 Nicotine dependence, cigarettes, uncomplicated; Z20.828 Contact with and (suspected) exposure to other viral communicable diseases
CPT/HCPCS: G0378

== ENCOUNTER 2020-03-17 07:44 | Observation (INO) | payer MEDICARE, OTHER ==
[~2020-03-17] VITALS: Ht 157.5 cm; Wt 55.0 kg
[~2020-03-17 07:44] MED LIST changes: +LEVAQUIN750 MG PO
--- NOTE | 2020-03-17 07:48 | NUR ---
PATIENT TO ROOM VIA WHEELCHAIR AND PYSICIAN AT BEDSIDE FOR EVAL
--- NOTE | 2020-03-17 08:00 | NUR ---
PT VERY ANXIOUS. UNABLE TO OBTAIN PERIPHERAL ACCESS, WILL SET UP FOR CENTRAL LINE INSERTION PER MD ORDERS.
[2020-03-17 08:30] LABS: URINE BILIRUBIN - DIPSTICK NEGATIVE (NEGATIVE); URINE BLOOD DIPSTICK NEGATIVE (NEGATIVE); URINE COLOR YELLOW; URINE GLUCOSE - DIPSTICK 250 mg/dL (NEGATIVE); URINE KETONE NEGATIVE (NEGATIVE); URINE LEUK ESTERASE NEGATIVE (NEGATIVE); URINE NITRITE - DIPSTICK NEGATIVE (Negative); URINE PH 6.5 (4.5-8.0); URINE PROTEIN - DIPSTICK TRACE mg/dL (NEG-TRACE); URINE SPECIFIC GRAVITY 1.015
--- NOTE | 2020-03-17 09:00 | NUR ---
CENTRAL LINE NOW IN PLACE. MEDS ADMINISTERED. PT LESS ANXIOUS.
[2020-03-17 09:44] LABS: HEMATOCRIT 32.4 % (37.0-47.0); HEMOGLOBIN 9.9 g/dl (12.0-16.0); IMMATURE GRANULOCYTES 0.8 % (0.0-5.0); MEAN CORPUSCULAR HGB 26.3 pG CALC (26.0-32.0); MEAN CORPUSCULAR HGB CONC 30.6 g/dL CAL (32.0-36.0); NEUT# 14.1 thou/uL (2.00-7.15); RED BLOOD COUNT 3.77 mill/uL (4.20-5.60)
[2020-03-17 09:46] LABS: MEAN CELL VOLUME 85.9 fL CALC (80.0-100.0)
[2020-03-17 09:59] LABS: ALBUMIN 3.4 g/dL (3.2-5.0); ALKALINE PHOSPHATASE 145 u/l (38-126); BILIRUBIN, TOTAL 0.6 mg/dL (0.0-1.4); BUN 30 mg/dL (7-17); BUN/CREATININE RATIO 28 (12-20 (CALC)); CHLORIDE 97 mmol/l (95-108); CREATININE 1.1 mg/dL (0.5-1.0); GFR 51 ML/MIN (>=60 (CALC)); GFR FOR AFR.AMER. > 60 ML/MIN (>=60 (CALC)); SGOT/AST 32 u/l (14-36); SODIUM 132 mmol/l (137-146); TOTAL PROTEIN 6.8 g/dL (6.3-8.2)
--- NOTE | 2020-03-17 10:00 | NUR ---
MEDS INFUSING WITHOUT COMPLICATIONS. VITALS STABLE. CONTINUING TO MONITOR.
[2020-03-17 10:01] LABS: ANION GAP 11 (6-22 (CALC)); CARBON DIOXIDE 28 mmol/l (22-30)
[2020-03-17 10:26] LABS: C-REACTIVE PROTEIN > 27.0 mg/dL (0-0.9)
--- NOTE | 2020-03-17 11:58 | NUR ---
REPORT CALLED TO MS [id number], NURSE SCHREIBER. PT TRANSPORTED VIA WHEELCHAIR. BELONGINGS WITH PT. IN MEDS INFUSING WITHOUT COMPLICATION.
--- NOTE | 2020-03-17 12:13 | NUR ---
PT ARRIVED FROM ER VIA STRETCHER ACCOMPANIED BY STAFF.
[2020-03-17 12:32] VITALS: BP 155/80
--- NOTE | 2020-03-17 13:24 | NUR ---
PT WANTS THE "MF THING OUT OF MY NECK NOW".
--- NOTE | 2020-03-17 13:25 | NUR ---
ASSESSMENT IS COMPLTED: PT STATED" I AM HAVING PAIN IN MY LUNG, AND YOU WILL NOT GIVE ME PAIN MEDICATION". INFORMED THE ARPN RE: PAIN MEDICATION. HR IS REG,PULSES ARE STRONG X4, ABD IS SOFT WITH ACTIVE BS. BREATH SOUNDS ARE CLEAR BILATERALLY. TELE MONITOR IN PLACE. CONTINUE TO OSBERVE AND MONITOR.
--- NOTE | 2020-03-17 13:26 | NUR ---
LEFT A MESSAGE FOR DR GARCIA RE: PT WANTING TO LEAVE AMA
--- NOTE | 2020-03-17 13:30 | NUR ---
IV SITE TAKEN OUT OF PT'S NECK. AND PT WAS DRESSED AND READY TO LEAVE.
--- NOTE | 2020-03-17 13:32 | NUR ---
DR GARCIA CALLED BACK, EXPLAINED THE SITUATION. WAS INFORMED TO "LET HER GO".
--- NOTE | 2020-03-17 13:35 | NUR ---
PT WALKED OUT AMA FROM THE UNIT. EXPLAINED RE: THE MEDICATIONS PT WAS ORDERED. SHE CALLED HER RIDE AND TOLD THEM" I AM GETTING THE F OUT OF HERE , THEY AREN'T GIVING ANY PAIN MEDICATION, AND MY LUNG HURTS"
--- NOTE | 2020-03-17 13:40 | NUR ---
Discharge instructions given. Patient verbalizes understanding of same. Discharged in stable condition via Ambulatory to Home with family. All belongings sent with pt.SIGNED OUT AMA
--- NOTE | 2020-03-17 14:17 | NUR ---
S: ANTHONY CONTE is a 59 F who presents with sepsis and pneumonia. She has a history of COPD, intravenous drug abuse, arthritis. All medications in patient's chart were reviewed. O: VS: BP 155/80 mmHg, P 94 bpm, RR20 breaths/min, T 98.1 F W 55 kg, HT 157.48 cm, Scr= 1.1 mg/dL,CrCl= 44 ml/min A: Blood culture is growing MRSA from 03/04 (pt left AMA) P: Patient is on Vancomycin IV. Vancomycin ordered for pharmacy to dose. Start Vancomycin 750 mg IV Q24H. Vancomycin trough is drawn before the 4th dose on 03/20/20 0630. Vancomycin goal trough is between 15-20 mcg/ml. Pharmacy will follow and or advise on antibiotics use as needed.
== END 2020-03-17 13:35 | disposition left against medical advice (07) ==
LOC: ED 07:44 → ED-I 09:40 → ED 10:24 → MS2 10:25
PROVIDERS: Family Medicine; ADMIT Internal Medicine; ATTEND Internal Medicine
PROC: 05HN33Z Insertion of Infusion Device into Left Internal Jugular Vein, Percutaneous Approach (ICD-10-PCS; principal; 2020-03-17)
DX: J44.1 Chronic obstructive pulmonary disease with (acute) exacerbation (principal); J18.9 Pneumonia, unspecified organism; J44.0 Chronic obstructive pulmonary disease with (acute) lower respiratory infection; F11.10 Opioid abuse, uncomplicated; F17.200 Nicotine dependence, unspecified, uncomplicated; Z20.828 Contact with and (suspected) exposure to other viral communicable diseases
CPT/HCPCS: G0378; J0692; J1650; J3370; Q9967

== ENCOUNTER 2020-05-06 17:50 | Emergency (ER) | payer OTHER, MEDICARE ==
[~2020-05-06] VITALS: Ht 157.5 cm; Wt 59.1 kg
[2020-05-06 18:14] LABS: HEMOGLOBIN 10.9 g/dl (12.0-16.0); IMMATURE GRANULOCYTES 0.2 % (0.0-5.0); MEAN CELL VOLUME 83.7 fL CALC (80.0-100.0); MEAN CORPUSCULAR HGB 26.1 pG CALC (26.0-32.0); MEAN CORPUSCULAR HGB CONC 31.1 g/dL CAL (32.0-36.0); NEUT# 4.02 thou/uL (2.00-7.15); RED BLOOD COUNT 4.18 mill/uL (4.20-5.60); RED CELL DISTRI WIDTH 14.9 % (11.5-15.5)
[2020-05-06 18:30] LABS: ALKALINE PHOSPHATASE 110 u/l (38-126); BILIRUBIN, TOTAL 0.6 mg/dL (0.0-1.4); BUN 17 mg/dL (7-17); BUN/CREATININE RATIO 18 (12-20 (CALC)); CHLORIDE 104 mmol/l (95-108); CREATININE 0.9 mg/dL (0.5-1.0); ETHYL ALCOHOL 0 mg/dl (0-30); GFR > 60 ML/MIN (>=60 (CALC)); GFR FOR AFR.AMER. > 60 ML/MIN (>=60 (CALC)); POTASSIUM 4.6 mmol/l (3.5-5.1); SGOT/AST 29 u/l (14-36); SODIUM 138 mmol/l (137-146)
[2020-05-06 18:31] LABS: ALBUMIN 4.6 g/dL (3.2-5.0); ANION GAP 17 (6-22 (CALC)); CARBON DIOXIDE 22 mmol/l (22-30); TOTAL PROTEIN 8.4 g/dL (6.3-8.2)
[2020-05-06 18:58] LABS: ACT PARTIAL THROMBO TIME 21.2 SECONDS (20.0-32.5); PROTHROMBIN TIME 10.1 SECONDS (9.0-12.5)
[2020-05-06] MEDS ORDERED: KEFLEX500 M1 PO (20:17)
[2020-05-06] MEDS ORDERED: LORTAB 1010 MG PO (20:17)
[2020-05-06] MEDS ORDERED: NEOSPORIN PLUS28 GM TOP (20:17)
[2020-05-06 21:01] VITALS: BP 157/83
== END 2020-05-06 21:28 | disposition home or self-care (01) | DRG 605 ==
LOC: ED 17:50
PROC: 0HQKXZZ Repair Right Lower Leg Skin, External Approach (ICD-10-PCS; principal; 2020-05-06)
DX: S81.011A Laceration without foreign body, right knee, initial encounter (principal); S40.211A Abrasion of right shoulder, initial encounter; S50.811A Abrasion of right forearm, initial encounter; S60.812A Abrasion of left wrist, initial encounter; S60.811A Abrasion of right wrist, initial encounter; S30.810A Abrasion of lower back and pelvis, initial encounter; S70.311A Abrasion, right thigh, initial encounter; S80.812A Abrasion, left lower leg, initial encounter; S00.03XA Contusion of scalp, initial encounter; M54.2 Cervicalgia; R91.1 Solitary pulmonary nodule; J44.9 Chronic obstructive pulmonary disease, unspecified; F17.200 Nicotine dependence, unspecified, uncomplicated; V14.4XXA Pedal cycle driver injured in collision with heavy transport vehicle or bus in traffic accident, initial encounter
CPT/HCPCS: Q9967

== ENCOUNTER 2020-05-14 14:50 | Emergency (ER) | payer OTHER, MEDICARE ==
[~2020-05-14] VITALS: Ht 157.5 cm; Wt 54.0 kg
[~2020-05-14 14:50] MED LIST changes: +LORTAB 1010 MG PO; +NEOSPORIN PLUS28 GM TOP
[2020-05-14 15:06] VITALS: BP 155/86
[2020-05-14] MEDS ORDERED: ULTRAM50 M1 PO (15:37)
[2020-05-14] MEDS ORDERED: CYCLOBENZAPRINE10 MG PO (15:37)
== END 2020-05-14 15:40 | disposition home or self-care (01) | DRG 605 ==
LOC: ED 14:50
DX: S40.812A Abrasion of left upper arm, initial encounter (principal); S40.811A Abrasion of right upper arm, initial encounter; S80.812A Abrasion, left lower leg, initial encounter; S80.811A Abrasion, right lower leg, initial encounter; J44.9 Chronic obstructive pulmonary disease, unspecified; F17.210 Nicotine dependence, cigarettes, uncomplicated; V03.90XA Pedestrian on foot injured in collision with car, pick-up truck or van, unspecified whether traffic or nontraffic accident, initial encounter

== ENCOUNTER 2020-08-03 15:39 | Emergency (ER) | payer OTHER, MEDICARE ==
[~2020-08-03] VITALS: Ht 157.5 cm; Wt 52.0 kg
[~2020-08-03 15:39] MED LIST changes: +CYCLOBENZAPRINE10 MG PO; +ULTRAM50 M1 PO
[2020-08-03] MEDS ORDERED: NAPROXEN375 MG PO (17:05)
[2020-08-03 17:15] VITALS: BP 102/58
== END 2020-08-03 17:15 | disposition home or self-care (01) | DRG 552 ==
LOC: ED 15:39
DX: M54.5 Low back pain (principal); G89.29 Other chronic pain; M19.90 Unspecified osteoarthritis, unspecified site; J44.9 Chronic obstructive pulmonary disease, unspecified; F17.290 Nicotine dependence, other tobacco product, uncomplicated

== ENCOUNTER 2020-11-21 23:15 | Emergency (ER) | payer MEDICARE, OTHER ==
[~2020-11-21] VITALS: Ht 157.5 cm; Wt 47.3 kg
[~2020-11-21 23:15] MED LIST changes: +NAPROXEN375 MG PO
[2020-11-22 00:41] LABS: HEMATOCRIT 33.3 % (37.0-47.0); HEMOGLOBIN 10.6 g/dl (12.0-16.0); IMMATURE GRANULOCYTES 0.6 % (0.0-5.0); MEAN CELL VOLUME 84.3 fL CALC (80.0-100.0); MEAN CORPUSCULAR HGB 26.8 pG CALC (26.0-32.0); MEAN CORPUSCULAR HGB CONC 31.8 g/dL CAL (32.0-36.0); NEUT# 5.79 thou/uL (2.00-7.15); RED BLOOD COUNT 3.95 mill/uL (4.20-5.60); RED CELL DISTRI WIDTH 15.7 % (11.5-15.5)
[2020-11-22 00:53] LABS: ALBUMIN 4.3 g/dL (3.2-5.0); BILIRUBIN, TOTAL 0.7 mg/dL (0.0-1.4); CREATININE 1.4 mg/dL (0.5-1.0); POTASSIUM 4.8 mmol/l (3.5-5.1); TOTAL PROTEIN 8.1 g/dL (6.3-8.2)
[2020-11-22] MEDS ORDERED: ORPHENADRINE100 MG PO (01:00)
[2020-11-22] MEDS ORDERED: IBUPROFEN600 MG PO (01:00)
[2020-11-22 01:04] VITALS: BP 167/65
== END 2020-11-22 01:20 | disposition home or self-care (01) ==
LOC: ED 23:15
PROVIDERS: Emergency Medicine
DX: M54.5 Low back pain (principal); J44.9 Chronic obstructive pulmonary disease, unspecified; F17.210 Nicotine dependence, cigarettes, uncomplicated; Z98.1 Arthrodesis status

== ENCOUNTER 2021-04-03 19:26 | Emergency (ER) | payer MEDICARE, OTHER ==
[~2021-04-03] VITALS: Ht 157.5 cm; Wt 57.0 kg
[~2021-04-03 19:26] MED LIST changes: +IBUPROFEN600 MG PO; +ORPHENADRINE100 MG PO
[2021-04-03 20:43] LABS: HEMATOCRIT 34.5 % (37.0-47.0); HEMOGLOBIN 11.4 g/dl (12.0-16.0); IMMATURE GRANULOCYTES 0.3 % (0.0-5.0); MEAN CELL VOLUME 87.3 fL CALC (80.0-100.0); MEAN CORPUSCULAR HGB 28.9 pG CALC (26.0-32.0); NEUT# 5.58 thou/uL (2.00-7.15); RED BLOOD COUNT 3.95 mill/uL (4.20-5.60); RED CELL DISTRI WIDTH 13.4 % (11.5-15.5)
[2021-04-03 21:18] LABS: ALBUMIN 4.4 g/dL (3.2-5.0); BILIRUBIN, TOTAL 0.5 mg/dL (0.0-1.4); CREATININE 1.3 mg/dL (0.5-1.0); POTASSIUM 4.2 mmol/l (3.5-5.1); TOTAL PROTEIN 7.8 g/dL (6.3-8.2)
[2021-04-03] MEDS ORDERED: PREDNISONE50 MG PO (21:32)
[2021-04-03] MEDS ORDERED: VENTOLIN HFA IN (21:32)
[2021-04-03 22:03] VITALS: BP 157/89
== END 2021-04-03 22:27 | disposition home or self-care (01) ==
LOC: ED 19:26
PROVIDERS: Family Medicine
DX: J44.1 Chronic obstructive pulmonary disease with (acute) exacerbation (principal); M25.572 Pain in left ankle and joints of left foot; F17.200 Nicotine dependence, unspecified, uncomplicated; Z20.822 Contact with and (suspected) exposure to COVID-19

== ENCOUNTER 2021-05-09 05:57 | Emergency (ER) | payer MEDICARE, OTHER ==
[~2021-05-09] VITALS: Ht 157.5 cm; Wt 55.0 kg
[~2021-05-09 05:57] MED LIST changes: +PREDNISONE50 MG PO
[2021-05-09 07:14] LABS: ALBUMIN 3.9 g/dL (3.2-5.0); ALKALINE PHOSPHATASE 160 u/l (38-126); ANION GAP 15 (6-22 (CALC)); BILIRUBIN, TOTAL 0.6 mg/dL (0.0-1.4); BUN 19 mg/dL (7-17); BUN/CREATININE RATIO 19 (12-20 (CALC)); CARBON DIOXIDE 25 mmol/l (22-30); CHLORIDE 100 mmol/l (95-108); GFR 57 ML/MIN (>=60 (CALC)); GFR FOR AFR.AMER. > 60 ML/MIN (>=60 (CALC)); HEMATOCRIT 31.1 % (37.0-47.0); HEMOGLOBIN 9.9 g/dl (12.0-16.0); IMMATURE GRANULOCYTES 0.3 % (0.0-5.0); MEAN CELL VOLUME 89.9 fL CALC (80.0-100.0); MEAN CORPUSCULAR HGB 28.6 pG CALC (26.0-32.0); MEAN CORPUSCULAR HGB CONC 31.8 g/dL CAL (32.0-36.0); NEUT# 10.47 thou/uL (2.00-7.15); POTASSIUM 4.3 mmol/l (3.5-5.1); RED BLOOD COUNT 3.46 mill/uL (4.20-5.60); RED CELL DISTRI WIDTH 13.7 % (11.5-15.5); SGOT/AST 26 u/l (14-36); SODIUM 136 mmol/l (137-146); TOTAL PROTEIN 7.1 g/dL (6.3-8.2)
[2021-05-09 08:38] LABS: URINE BILIRUBIN - DIPSTICK NEGATIVE (NEGATIVE); URINE BLOOD DIPSTICK LARGE (NEGATIVE); URINE COLOR YELLOW; URINE GLUCOSE - DIPSTICK NEGATIVE (NEGATIVE); URINE KETONE NEGATIVE (NEGATIVE); URINE LEUK ESTERASE NEGATIVE (NEGATIVE); URINE PROTEIN - DIPSTICK 30 mg/dL (NEG-TRACE); URINE SPECIFIC GRAVITY 1.025; URINE UROBILINOGEN - DIPSTICK 0.2 E.U./dL (0.2)
[2021-05-09 08:42] LABS: URINE NITRITE - DIPSTICK NEGATIVE (Negative)
[2021-05-09 08:53] LABS: URINE SQUAMOUS EPITHELIAL CELL MODERATE EPI/hpf (0-FEW)
[2021-05-09 12:30] VITALS: BP 140/63
== END 2021-05-09 12:30 | disposition short-term general hospital (02) ==
LOC: ED 05:57
PROVIDERS: Emergency Medicine
DX: T81.40XA Infection following a procedure, unspecified, initial encounter (principal); M46.26 Osteomyelitis of vertebra, lumbar region; M46.46 Discitis, unspecified, lumbar region; J44.9 Chronic obstructive pulmonary disease, unspecified; F17.210 Nicotine dependence, cigarettes, uncomplicated; Y83.9 Surgical procedure, unspecified as the cause of abnormal reaction of the patient, or of later complication, without mention of misadventure at the time of the procedure

== ENCOUNTER 2021-07-25 20:54 | Emergency (ER) | payer MEDICARE, MEDICAID ==
[~2021-07-25] VITALS: Ht 157.5 cm; Wt 56.8 kg
[2021-07-25 21:55] LABS: HEMATOCRIT 37.3 % (37.0-47.0); HEMOGLOBIN 11.5 g/dl (12.0-16.0); IMMATURE GRANULOCYTES 0.2 % (0.0-5.0); MEAN CELL VOLUME 89.7 fL CALC (80.0-100.0); MEAN CORPUSCULAR HGB 27.6 pG CALC (26.0-32.0); MEAN CORPUSCULAR HGB CONC 30.8 g/dL CAL (32.0-36.0); NEUT# 10.66 thou/uL (2.00-7.15); RED BLOOD COUNT 4.16 mill/uL (4.20-5.60); RED CELL DISTRI WIDTH 13.8 % (11.5-15.5)
[2021-07-25 22:09] LABS: CREATININE 1.2 mg/dL (0.5-1.0)
[2021-07-25 22:10] LABS: ALBUMIN 4.7 g/dL (3.2-5.0); BILIRUBIN, TOTAL 0.9 mg/dL (0.0-1.4); POTASSIUM 5.3 mmol/l (3.5-5.1); TOTAL PROTEIN 9.2 g/dL (6.3-8.2)
[2021-07-26] MEDS ORDERED: VIBRAMYCIN100 M2 PO (01:42)
[2021-07-26] MEDS ORDERED: GABAPENTIN300 M2 PO (01:42)
[2021-07-26 02:15] VITALS: BP 140/98
== END 2021-07-26 02:20 | disposition home or self-care (01) ==
LOC: ED 20:54
PROVIDERS: Family Medicine
DX: M54.50 Low back pain, unspecified (principal); G89.29 Other chronic pain; J44.1 Chronic obstructive pulmonary disease with (acute) exacerbation; F17.200 Nicotine dependence, unspecified, uncomplicated; Z98.890 Other specified postprocedural states; Z20.822 Contact with and (suspected) exposure to COVID-19

== ENCOUNTER 2022-01-12 19:09 | Emergency (ER) | payer MEDICARE, MEDICAID ==
[2022-01-12] VITALS (7 sets, daily range): BP systolic 116–173; BP diastolic 70–105
[~2022-01-12] VITALS: Ht 157.5 cm; Wt 54.0 kg
[~2022-01-12 19:09] MED LIST changes: +GABAPENTIN300 M2 PO; +VIBRAMYCIN100 M2 PO
[2022-01-12] MEDS ORDERED: AMOXICILLIN500 MG PO (21:25)
[2022-01-12] MEDS ORDERED: LORTAB 1010 MG PO (21:25)
== END 2022-01-12 21:46 | disposition home or self-care (01) ==
LOC: ED 19:09
DX: S93.602A Unspecified sprain of left foot, initial encounter (principal); S93.402A Sprain of unspecified ligament of left ankle, initial encounter; L03.116 Cellulitis of left lower limb; J44.9 Chronic obstructive pulmonary disease, unspecified; G57.82 Other specified mononeuropathies of left lower limb; F17.210 Nicotine dependence, cigarettes, uncomplicated; W19.XXXA Unspecified fall, initial encounter

== ENCOUNTER 2022-01-25 11:50 | Observation (INO) | payer MEDICARE, MEDICAID ==
[2022-01-25] VITALS (12 sets, daily range): BP systolic 94–136; BP diastolic 59–78
[~2022-01-25] VITALS: Ht 157.5 cm; Wt 48.0 kg
--- NOTE | 2022-01-25 11:55 | NUR ---
PT TO ROOM VIA WC
[2022-01-25 12:14] LABS: HEMOGLOBIN 13.3 g/dl (12.0-16.0); MEAN CORPUSCULAR HGB CONC 30.6 g/dL CAL (32.0-36.0); NEUT# 3.56 thou/uL (2.00-7.15); RED BLOOD COUNT 5.32 mill/uL (4.20-5.60)
[2022-01-25 12:35] LABS: HEMATOCRIT 43.5 % (37.0-47.0); MEAN CELL VOLUME 81.8 fL CALC (80.0-100.0)
[2022-01-25 12:41] LABS: ALBUMIN 4.5 g/dL (3.2-5.0); ALKALINE PHOSPHATASE 127 u/l (38-126); BUN 28 mg/dL (7-17); BUN/CREATININE RATIO 20 (12-20 (CALC)); CARBON DIOXIDE 23 mmol/l (22-30); CHLORIDE 101 mmol/l (95-108); CREATININE 1.4 mg/dL (0.5-1.0); GFR FOR AFR.AMER. 46 ML/MIN (>=60 (CALC)); GFR OTHER RACES 38 ML/MIN (>=60 (CALC)); SGOT/AST 45 u/l (14-36); SODIUM 134 mmol/l (137-146); TOTAL PROTEIN 8.7 g/dL (6.3-8.2)
[2022-01-25 12:42] LABS: ANION GAP 14 (6-22 (CALC)); BILIRUBIN, TOTAL 0.4 mg/dL (0.0-1.4); POTASSIUM 4.2 mmol/l (3.5-5.1)
--- NOTE | 2022-01-25 13:30 | NUR ---
PT RESTING ON STRETCHER; MONITORING DEVICES IN PLACE
--- NOTE | 2022-01-25 14:30 | NUR ---
DR NAIR AT BEDSIDE
--- NOTE | 2022-01-25 15:20 | NUR ---
Admission Note Report Given to: JOSELIN GOMEZ Transported by: X Wheelchair Stretcher Transported with: X Nurse Transporter X Patent IV O2 X Dental Mechanic Location: ICU X [facility]
--- NOTE | 2022-01-25 15:25 | NUR ---
RECEIVE PATIENT AND REPORT FROM ER COLP ER NURSE. PATIENT ALERT AND ORIENTED X3. ANY COMPLAINT AT THIS TIME. PATIENT IS EDUCATED ABOUD MEDICATIONS, ADMISSION AND NURSING PLAN. PT REFER JAYNE.
--- NOTE | 2022-01-25 20:10 | NUR ---
PT RECLINING IN BED WATCHING TV. PT IS ABLE TO MOVE AROUND IN BED INDEPENDENTLY. PT STATED SHE IS FEELING CHRONIC DISCOMFORT IN HER LEGS. PT DOESNT APPEAR AGITATED. BREATHING IS NON LABORED AND THERES NO SIGNS OF RESPRITORY DISTRESS. PROVIDED WRAP BECAUSE PT STATED SHE COULDNT EAT THE DINNER PROVIDED. BED RAILS X2 FOR SAFETY. CALL LIGHT WITHIN REACH AND PT EDUCATED ON USE. PT ENCOURAGED TO CALL FOR ASSISTANCE WHEN GOING TO RESTROOM OR OUT OF BED.
--- NOTE | 2022-01-26 04:00 | NUR ---
PT SITTING ON SIDE OF BED UPON ENTRY, VERY AGITATED. SHE STATED SHE WAS NOT RECIEVING HER HOME MEDS, I WENT OVER HER HOME MEDS THAT I HAVE ON FILE. WELL TOLD HER SHE CAN BRING IN HER PRESCIPTIONS FOR THE ATTENDING PHYSICIAN TO GO OVER TO SEE WHAT SHE NEEDS. PT STATED SHE DID NOT WANT TO WAIT AND SAID SHE MAY HAVE TO JUST LEAVE. PATIENT BREATHING WAS NON LABORED, STATED SHE WAS EXPERIENCING CHRONIC PAIN. I GAVE HER A PILLOW TO HELP POSITION HER LEGS/FEET. WILL CONTINUE TO MONITOR. BED RAILS X2 FOR SAFETY UP. CALL LIGHT WITHIN REACH, ENCOURAGED TO USE IT WHEN ASSISTANCE IS NEEDED.
[2022-01-26 04:53] LABS: HEMOGLOBIN 11.5 g/dl (12.0-16.0); IMMATURE GRANULOCYTES 0.4 % (0.0-5.0); MEAN CELL VOLUME 78.8 fL CALC (80.0-100.0); MEAN CORPUSCULAR HGB 25.6 pG CALC (26.0-32.0); MEAN CORPUSCULAR HGB CONC 32.5 g/dL CAL (32.0-36.0); NEUT# 1.6 thou/uL (2.00-7.15); RED BLOOD COUNT 4.49 mill/uL (4.20-5.60); RED CELL DISTRI WIDTH 14.3 % (11.5-15.5)
[2022-01-26 04:55] LABS: HEMATOCRIT 35.4 % (37.0-47.0)
[2022-01-26 05:20] LABS: ALBUMIN 4.2 g/dL (3.2-5.0); C-REACTIVE PROTEIN 0.6 mg/dL (0-0.9); CREATININE 1.2 mg/dL (0.5-1.0); POTASSIUM 4.6 mmol/l (3.5-5.1); TOTAL PROTEIN 7.8 g/dL (6.3-8.2)
[2022-01-26 05:21] LABS: BILIRUBIN, TOTAL 0.2 mg/dL (0.0-1.4)
--- NOTE | 2022-01-26 07:00 | NUR ---
RECEIVE REPORT FROM JOHANN OLIVERA.
[2022-01-26 07:45] VITALS: BP 126/70
--- NOTE | 2022-01-26 08:00 | NUR ---
PATIENT ALERT AND ORIENTED X3. VITAL SIGNS STABLE AT THIS TIME. PT RESTING IN BED PLEASANT. PT IS EDUCATED ABOUD MEDICATIONS AND NURSING PLAN FOR TODAY. PT REFER UNDERSTAND. FALL AND SAFETY PRECAUTIONS IN PLACE. CALL LIGHT IS WITHIN REACH.
[2022-01-26 11:13] VITALS: BP 150/80
[2022-01-26] MEDS ORDERED: LEVAQUIN750 M1 PO (12:23)
[2022-01-26] MEDS ORDERED: PREDNISONE10 MG PO (12:23)
--- NOTE | 2022-01-26 12:30 | NUR ---
PATIENT IS DISCHARGED AT HOME STABLE. PT IS EDUCATED ABOUD MEDICATIOSN AT HOME AND DOCTORS FOLLOW UP. PT REFER UNDERSTAND.
== END 2022-01-26 12:45 | disposition home or self-care (01) ==
LOC: ED 11:50 → ED-I 13:18 → ED 14:29 → MS2 14:30
PROVIDERS: Family Medicine; ADMIT Internal Medicine; ATTEND Internal Medicine
DX: U07.1 COVID-19 (principal); J44.1 Chronic obstructive pulmonary disease with (acute) exacerbation; G62.9 Polyneuropathy, unspecified; M19.90 Unspecified osteoarthritis, unspecified site; F17.210 Nicotine dependence, cigarettes, uncomplicated
CPT/HCPCS: J1650

== ENCOUNTER 2022-12-20 20:02 | Emergency (ER) | payer MEDICARE, MEDICAID ==
[2022-12-20] VITALS (11 sets, daily range): BP systolic 110–147; BP diastolic 71–101
[~2022-12-20] VITALS: Ht 157.5 cm; Wt 54.0 kg
[~2022-12-20 20:02] MED LIST changes: +LEVAQUIN750 M1 PO; +PREDNISONE10 MG PO
[2022-12-20] MEDS ORDERED: OPANA (20:58)
[2022-12-20] MEDS ORDERED: DILAUDID8 MG PO (20:58)
[2022-12-20 21:00] LABS: BASO% 0.6 % (0-3); EOS% 8.2 % (0-8); HEMATOCRIT 35.3 % (37.0-47.0); IMMATURE GRANULOCYTES 0.3 % (0.0-5.0); LYMPH% 16.6 % (15-41); MEAN CORPUSCULAR HGB 26.9 pG CALC (26.0-32.0); MEAN CORPUSCULAR HGB CONC 31.2 g/dL CAL (32.0-36.0); MONO% 8.2 % (2-13); NEUT# 4.59 thou/uL (2.00-7.15); NEUT% 66.1 % (42-76); RED BLOOD COUNT 4.09 mill/uL (4.20-5.60); RED CELL DISTRI WIDTH 14.2 % (11.5-15.5)
[2022-12-20 21:08] LABS: MEAN CELL VOLUME 86.3 fL CALC (80.0-100.0)
[2022-12-20 21:12] LABS: ALBUMIN 4.5 g/dL (3.2-5.0); ALKALINE PHOSPHATASE 109 u/l (38-126); BUN 19 mg/dL (7-17); BUN/CREATININE RATIO 16 (12-20 (CALC)); CHLORIDE 101 mmol/l (95-108); CREATININE 1.2 mg/dL (0.5-1.0); GFR FOR AFR.AMER. 55 ML/MIN (>=60 (CALC)); GFR OTHER RACES 46 ML/MIN (>=60 (CALC)); POTASSIUM 4.5 mmol/l (3.5-5.1); SGOT/AST 38 u/l (14-36); SODIUM 137 mmol/l (137-146); TOTAL PROTEIN 8.1 g/dL (6.3-8.2)
[2022-12-20 21:22] LABS: ANION GAP 13 (6-22 (CALC)); BILIRUBIN, TOTAL 0.3 mg/dL (0.02-1.3); CARBON DIOXIDE 28 mmol/l (22-30)
[2022-12-20 22:18] LABS: URINE BILIRUBIN - DIPSTICK NEGATIVE (NEGATIVE); URINE BLOOD DIPSTICK TRACE-INTACT (NEGATIVE); URINE COLOR YELLOW; URINE GLUCOSE - DIPSTICK NEGATIVE (NEGATIVE); URINE KETONE NEGATIVE (NEGATIVE); URINE LEUK ESTERASE NEGATIVE (NEGATIVE); URINE PROTEIN - DIPSTICK NEGATIVE (NEG-TRACE); URINE UROBILINOGEN - DIPSTICK 0.2 E.U./dL (0.2)
[2022-12-20 22:26] LABS: URINE NITRITE - DIPSTICK NEGATIVE (Negative)
[2022-12-20] MEDS ORDERED: MEDDOSEPAK PO (22:52)
[2022-12-20] MEDS ORDERED: ALBUTEROL SUL0.083 % NEB (22:52)
[2022-12-20] MEDS ORDERED: ZPAK PO (22:52)
== END 2022-12-20 23:03 | disposition left against medical advice (07) ==
LOC: ED 20:02
PROVIDERS: Emergency Medicine
DX: J44.1 Chronic obstructive pulmonary disease with (acute) exacerbation (principal); F17.200 Nicotine dependence, unspecified, uncomplicated; Z20.822 Contact with and (suspected) exposure to COVID-19; Z53.29 Procedure and treatment not carried out because of patient's decision for other reasons

== ENCOUNTER 2023-12-31 02:21 | Emergency (ER) | payer MEDICARE, MEDICAID ==
[~2023-12-31] VITALS: Ht 157.5 cm; Wt 65.0 kg
[2023-12-31] VITALS (7 sets, daily range): BP systolic 151–169; BP diastolic 95–99
[~2023-12-31 02:21] MED LIST changes: +ALBUTEROL SUL0.083 % NEB; +DILAUDID8 MG PO; +OPANA; +PROMETHAZINE HY25 M1 PO; +VENTOLIN HFA108 MCG PO; +ZPAK PO
[2023-12-31] MEDS ORDERED: SODIUM CHLORIDE 0.9% 1,000 ML IV STA ×2 (02:30→05:04)
[2023-12-31] MEDS ORDERED: HYDROmorphone HCL 2 MG/AMP IV STA (02:30)
[2023-12-31] MEDS ORDERED: DiphenhydrAMINE HCL 50 MG/ML SDV IV ONE (02:35)
[2023-12-31] MEDS ORDERED: PROMETHAZINE HCL 25 MG/ML AMP IV ONE (02:35)
[2023-12-31] MEDS ORDERED: KETOROLAC TROMETHAMINE 30 MG/ML SDV IV ONE (02:35)
[2023-12-31 03:16] LABS: BASO% 1.3 % (0-3); EOS% 0.3 % (0-8); HEMATOCRIT 47.5 % (37.0-47.0); HEMOGLOBIN 15.6 g/dl (12.0-16.0); IMMATURE GRANULOCYTES 0.2 % (0.0-5.0); MEAN CELL VOLUME 83.9 fL CALC (80.0-100.0); MEAN CORPUSCULAR HGB 27.6 pG CALC (26.0-32.0); MEAN CORPUSCULAR HGB CONC 32.8 g/dL CAL (32.0-36.0); MONO% 3.8 % (2-13); NEUT# 8.07 thou/uL (2.00-7.15); NEUT% 80.4 % (42-76); RED BLOOD COUNT 5.66 mill/uL (4.20-5.60); RED CELL DISTRI WIDTH 14.1 % (11.5-15.5)
[2023-12-31 03:26] LABS: ALBUMIN 4.8 g/dL (3.2-5.0); BILIRUBIN, TOTAL 0.7 mg/dL (0.02-1.3); CREATININE 1.1 mg/dL (0.5-1.0); POTASSIUM 4.3 mmol/l (3.5-5.1); TOTAL PROTEIN 8.7 g/dL (6.3-8.2)
[2023-12-31] MEDS ORDERED: PROCHLORPERAZINE EDISYLATE 10 MG/2 ML SDV IV ONE (06:15)
[2023-12-31] MEDS ORDERED: HYDROmorphone HCL 2 MG/TAB PO ONE (06:15)
[2023-12-31] MEDS ORDERED: PHENERGAN25 MG RE (06:26)
== END 2023-12-31 06:34 | disposition home or self-care (01) ==
LOC: ED 02:21
PROVIDERS: Family Medicine
DX: R11.2 Nausea with vomiting, unspecified (principal); G62.9 Polyneuropathy, unspecified; F17.200 Nicotine dependence, unspecified, uncomplicated; Z20.822 Contact with and (suspected) exposure to COVID-19

== ENCOUNTER 2024-01-18 17:58 | Emergency (ER) | payer MEDICARE, MEDICAID ==
[~2024-01-18] VITALS: Ht 157.5 cm; Wt 54.4 kg
[2024-01-18] MEDS ORDERED: IPRATROPIUM-Albuterol 0.5MG-2.5MG/3 ML NEB ONE ×2 (18:20)
[2024-01-18] MEDS ORDERED: methylPREDNISolone SODIUM SUCC 125 MG/2 ML SDV IV ONE (18:20)
[2024-01-18] MEDS ORDERED: KETOROLAC TROMETHAMINE 30 MG/ML SDV IV ONE ×2 (18:20→20:25)
[2024-01-18 18:36] VITALS: BP 140/93
[2024-01-18 18:54] LABS: URINE BILIRUBIN - DIPSTICK Negative (NEGATIVE); URINE BLOOD DIPSTICK Negative (NEGATIVE); URINE COLOR Yellow; URINE GLUCOSE - DIPSTICK Negative (NEGATIVE); URINE KETONE Negative (NEGATIVE); URINE LEUK ESTERASE Small (NEGATIVE); URINE NITRITE - DIPSTICK Negative (Negative); URINE PROTEIN - DIPSTICK Negative (NEG-TRACE); URINE SPECIFIC GRAVITY <=1.005; URINE UROBILINOGEN - DIPSTICK 0.2 E.U./dL (0.2)
[2024-01-18 19:01] LABS: URINE RBC 0-2 RBC/hpf (0-5); URINE SQUAMOUS EPITHELIAL CELL FEW EPI/hpf (0-FEW)
[2024-01-18 19:10] LABS: BASO% 0.7 % (0-3); EOS% 5.1 % (0-8); HEMATOCRIT 45.3 % (37.0-47.0); HEMOGLOBIN 14.4 g/dl (12.0-16.0); IMMATURE GRANULOCYTES 0.2 % (0.0-5.0); LYMPH% 29.2 % (15-41); MEAN CELL VOLUME 86.1 fL CALC (80.0-100.0); MEAN CORPUSCULAR HGB 27.4 pG CALC (26.0-32.0); MEAN CORPUSCULAR HGB CONC 31.8 g/dL CAL (32.0-36.0); MONO% 7.2 % (2-13); NEUT# 6.07 thou/uL (2.00-7.15); NEUT% 57.6 % (42-76); RED BLOOD COUNT 5.26 mill/uL (4.20-5.60); RED CELL DISTRI WIDTH 13.5 % (11.5-15.5)
[2024-01-18] MEDS ORDERED: SODIUM CHLORIDE 0.9% 1,000 ML IV ONE (19:15)
[2024-01-18 19:27] LABS: ALBUMIN 4.8 g/dL (3.2-5.0); BILIRUBIN, TOTAL 0.5 mg/dL (0.02-1.3); CREATININE 1.2 mg/dL (0.5-1.0); MAGNESIUM 1.9 mg/dL (1.6-2.3); POTASSIUM 4.5 mmol/l (3.5-5.1)
[2024-01-18] MEDS ORDERED: DICYCLOMINE HCL 20 MG/2 ML VIAL IM ONE (22:00)
[2024-01-18] MEDS ORDERED: MAGNESIUM SULFATE HEPTAHYDRATE 2 GM in SODIUM CHLORIDE 0.9% 50 ML IV ONE (22:00)
[2024-01-18] MEDS ORDERED: ALBUTEROL SULFATE 2.5 MG VIAL NEB ONE (22:00)
[2024-01-18 22:16] VITALS: BP 140/93
== END 2024-01-18 22:16 | disposition left against medical advice (07) ==
LOC: ED 17:58
PROVIDERS: Family Medicine; Internal Medicine
DX: J44.1 Chronic obstructive pulmonary disease with (acute) exacerbation (principal); R10.9 Unspecified abdominal pain; R00.0 Tachycardia, unspecified; R79.9 Abnormal finding of blood chemistry, unspecified; I10 Essential (primary) hypertension; G62.9 Polyneuropathy, unspecified; F17.210 Nicotine dependence, cigarettes, uncomplicated; Z53.29 Procedure and treatment not carried out because of patient's decision for other reasons

== ENCOUNTER 2024-01-21 09:20 | Emergency (ER) | payer MEDICARE, MEDICAID ==
[~2024-01-21] VITALS: Ht 157.5 cm; Wt 54.4 kg
[2024-01-21 09:32] VITALS: BP 181/106
[2024-01-21 09:34] VITALS: BP 154/107
[2024-01-21] MEDS ORDERED: ALBUTEROL SULFATE 2.5 MG VIAL NEB ONE (09:35)
[2024-01-21 09:36] VITALS: BP 154/107
[2024-01-21] MEDS ORDERED: methylPREDNISolone SODIUM SUCC 125 MG/2 ML SDV IM ONE (09:40)
== END 2024-01-21 09:36 | disposition left against medical advice (07) ==
LOC: ED 09:20
DX: J44.1 Chronic obstructive pulmonary disease with (acute) exacerbation (principal); G89.29 Other chronic pain; M54.50 Low back pain, unspecified; F11.10 Opioid abuse, uncomplicated; G62.9 Polyneuropathy, unspecified; F17.200 Nicotine dependence, unspecified, uncomplicated; Z53.29 Procedure and treatment not carried out because of patient's decision for other reasons

== ENCOUNTER 2024-02-14 21:53 | Emergency (ER) | payer MEDICARE, MEDICAID ==
[~2024-02-14] VITALS: Ht 157.5 cm; Wt 55.0 kg
[2024-02-14] MEDS ORDERED: SODIUM CHLORIDE 0.9% 1,000 ML IV ONE (22:05)
[2024-02-14] MEDS ORDERED: DiphenhydrAMINE HCL 50 MG/ML SDV IV ONE (22:05)
[2024-02-14] MEDS ORDERED: PROMETHAZINE HCL 25 MG/ML AMP IV ONE (22:05)
[2024-02-14 22:30] VITALS: BP 120/74
[2024-02-14 23:02] LABS: BASO% 0.5 % (0-3); EOS% 3.3 % (0-8); HEMATOCRIT 40.1 % (37.0-47.0); HEMOGLOBIN 12.5 g/dl (12.0-16.0); IMMATURE GRANULOCYTES 0.2 % (0.0-5.0); LYMPH% 14.9 % (15-41); MEAN CORPUSCULAR HGB 27.1 pG CALC (26.0-32.0); MEAN CORPUSCULAR HGB CONC 31.2 g/dL CAL (32.0-36.0); MONO% 6.9 % (2-13); NEUT# 7.88 thou/uL (2.00-7.15); NEUT% 74.2 % (42-76); RED BLOOD COUNT 4.61 mill/uL (4.20-5.60); RED CELL DISTRI WIDTH 13.5 % (11.5-15.5)
[2024-02-14 23:18] LABS: ALBUMIN 4.6 g/dL (3.2-5.0); ALKALINE PHOSPHATASE 99 u/l (38-126); ANION GAP 14 (6-22 (CALC)); BILIRUBIN, TOTAL 0.6 mg/dL (0.02-1.3); BUN 35 mg/dL (8-23); BUN/CREATININE RATIO 13 (12-20 (CALC)); CARBON DIOXIDE 24 mmol/l (22-30); CHLORIDE 103 mmol/l (95-108); CREATININE 2.8 mg/dL (0.5-1.0); ESTIMATED GFR 19 ML/MIN (>=90 (CALC)); ETHYL ALCOHOL 0 mg/dl (0-30); POTASSIUM 4.9 mmol/l (3.5-5.1); SGOT/AST 29 u/l (9-36); SODIUM 135 mmol/l (137-146); TOTAL PROTEIN 7.9 g/dL (6.3-8.2)
[2024-02-14] MEDS ORDERED: ONDANSETRON 4 MG/TAB ODT PO ONE (23:55)
[2024-02-15] MEDS ORDERED: LACTATED RINGER'S 1,000 ML IV ONE (01:55)
[2024-02-15 03:42] LABS: URINE BILIRUBIN - DIPSTICK Negative (NEGATIVE); URINE BLOOD DIPSTICK Trace-lysed (NEGATIVE); URINE COLOR Yellow; URINE GLUCOSE - DIPSTICK Negative (NEGATIVE); URINE KETONE Negative (NEGATIVE); URINE LEUK ESTERASE Small (NEGATIVE); URINE PH 5.5 (4.5-8.0); URINE PROTEIN - DIPSTICK 30 mg/dL (NEG-TRACE); URINE SPECIFIC GRAVITY 1.025; URINE UROBILINOGEN - DIPSTICK 0.2 E.U./dL (0.2)
[2024-02-15 03:43] LABS: URINE NITRITE - DIPSTICK Negative (Negative)
[2024-02-15 03:47] LABS: URINE EPITHELIAL CELLS MANY EPI/hpf (0-FEW)
[2024-02-15 03:48] LABS: URINE BACTERIA MODERATE hpf
[2024-02-15] MEDS ORDERED: ONDANSETRON4 MG PO (04:04)
[2024-02-15] MEDS ORDERED: HYDROmorphone HCL 2 MG/TAB PO ONE (04:10)
[2024-02-15 04:58] VITALS: BP 125/76
== END 2024-02-15 04:58 | disposition home or self-care (01) ==
LOC: ED 21:53
PROVIDERS: Family Medicine
DX: E86.0 Dehydration (principal); G62.9 Polyneuropathy, unspecified; F17.200 Nicotine dependence, unspecified, uncomplicated; Z20.822 Contact with and (suspected) exposure to COVID-19

== ENCOUNTER 2024-03-04 14:33 | Emergency (ER) | payer MEDICARE, MEDICAID ==
[~2024-03-04] VITALS: Ht 157.5 cm; Wt 53.5 kg
[~2024-03-04 14:33] MED LIST changes: +ONDANSETRON4 MG PO
[2024-03-04 14:43] VITALS: BP 170/101
[2024-03-04 14:45] VITALS: BP 165/106
[2024-03-04] MEDS ORDERED: ONDANSETRON HCl 4 MG/2 ML SDV IV ONE (14:50)
[2024-03-04] MEDS ORDERED: HYDROmorphone HCL 2 MG/AMP IV ONE (14:50)
[2024-03-04] MEDS ORDERED: SODIUM CHLORIDE 0.9% 500 ML IV ONE (15:00)
[2024-03-04 15:22] LABS: BASO% 0.5 % (0-3); EOS% 1.1 % (0-8); HEMATOCRIT 43.1 % (37.0-47.0); HEMOGLOBIN 13.9 g/dl (12.0-16.0); IMMATURE GRANULOCYTES 0.3 % (0.0-5.0); LYMPH% 16.1 % (15-41); MEAN CELL VOLUME 82.9 fL CALC (80.0-100.0); MEAN CORPUSCULAR HGB 26.7 pG CALC (26.0-32.0); MEAN CORPUSCULAR HGB CONC 32.3 g/dL CAL (32.0-36.0); MONO% 4.1 % (2-13); NEUT# 8.51 thou/uL (2.00-7.15); NEUT% 77.9 % (42-76); RED BLOOD COUNT 5.2 mill/uL (4.20-5.60); RED CELL DISTRI WIDTH 12.9 % (11.5-15.5)
[2024-03-04 15:36] LABS: ALBUMIN 4.6 g/dL (3.2-5.0); ALKALINE PHOSPHATASE 105 u/l (38-126); ANION GAP 12 (6-22 (CALC)); BILIRUBIN, TOTAL 0.8 mg/dL (0.02-1.3); BUN 23 mg/dL (8-23); CARBON DIOXIDE 24 mmol/l (22-30); CHLORIDE 105 mmol/l (95-108); ESTIMATED GFR 51 ML/MIN (>=90 (CALC)); LIPASE 80 u/l (23-300); POTASSIUM 4.6 mmol/l (3.5-5.1); SGOT/AST 38 u/l (9-36); SODIUM 137 mmol/l (137-146); TOTAL PROTEIN 8.4 g/dL (6.3-8.2)
[2024-03-04 15:45] LABS: BUN/CREATININE RATIO 19 (12-20 (CALC)); CREATININE 1.2 mg/dL (0.5-1.0)
[2024-03-04] MEDS ORDERED: ONDANSETRON 4 MG/TAB ODT SL ONE (15:45)
[2024-03-04] MEDS ORDERED: HYDROmorphone HCL 2 MG/AMP IM ONE (15:45)
[2024-03-04 15:51] VITALS: BP 148/98
[2024-03-04 16:00] VITALS: BP 156/98
[2024-03-04] MEDS ORDERED: ZOFRAN4 MG/TAB PO (16:26)
[2024-03-04 16:30] VITALS: BP 156/98
== END 2024-03-04 16:46 | disposition home or self-care (01) ==
LOC: ED 14:33
PROVIDERS: Family Medicine
DX: R11.2 Nausea with vomiting, unspecified (principal); G62.9 Polyneuropathy, unspecified; F17.200 Nicotine dependence, unspecified, uncomplicated; Z20.822 Contact with and (suspected) exposure to COVID-19

== ENCOUNTER 2024-03-04 20:20 | Emergency (ER) | payer MEDICARE, MEDICAID ==
[~2024-03-04] VITALS: Ht 157.5 cm; Wt 50.0 kg
[2024-03-04 20:39] VITALS: BP 155/105
[2024-03-04 20:41] VITALS: BP 144/105
[2024-03-04 21:00] VITALS: BP 151/104
[2024-03-04] MEDS ORDERED: DiphenhydrAMINE HCL 50 MG/ML SDV IV ONE ×2 (21:00→22:05)
[2024-03-04] MEDS ORDERED: METOCLOPRAMIDE HCL 10 MG/2 ML SDV IV ONE ×2 (21:00→22:05)
[2024-03-04] MEDS ORDERED: LACTATED RINGER'S 1,000 ML IV ONE ×2 (21:00)
[2024-03-04] MEDS ORDERED: ONDANSETRON HCl 4 MG/2 ML SDV IV ONE (21:00)
[2024-03-04] MEDS ORDERED: HYDROmorphone HCL 2 MG/AMP IV ONE (21:20)
[2024-03-04] MEDS ORDERED: DEXAMETHASONE SODIUM PHOSPHATE 4 MG/VIAL SDV IV ONE (22:05)
[2024-03-04 22:30] VITALS: BP 149/84
[2024-03-04 23:00] VITALS: BP 165/94
[2024-03-04 23:29] LABS: URINE BILIRUBIN - DIPSTICK Negative (NEGATIVE); URINE BLOOD DIPSTICK Trace-intact (NEGATIVE); URINE GLUCOSE - DIPSTICK Negative (NEGATIVE); URINE KETONE Negative (NEGATIVE); URINE LEUK ESTERASE Negative (NEGATIVE); URINE NITRITE - DIPSTICK Negative (Negative); URINE PH >=9.0 (4.5-8.0); URINE PROTEIN - DIPSTICK 100 mg/dL (NEG-TRACE); URINE SPECIFIC GRAVITY 1.015; URINE UROBILINOGEN - DIPSTICK 0.2 E.U./dL (0.2)
[2024-03-04 23:30] VITALS: BP 168/101
[2024-03-04 23:30] LABS: URINE COLOR Yellow
[2024-03-04 23:39] LABS: URINE BACTERIA FEW hpf; URINE SQUAMOUS EPITHELIAL CELL FEW EPI/hpf (0-FEW); URINE WBC 0-2 WBC/hpf (0-5)
[2024-03-05] VITALS: BP 160/105
[2024-03-05 00:31] VITALS: BP 156/95
[2024-03-05 00:46] LABS: ALBUMIN 5.1 g/dL (3.2-5.0); ALKALINE PHOSPHATASE 121 u/l (38-126); ANION GAP 16 (6-22 (CALC)); BILIRUBIN, TOTAL 0.8 mg/dL (0.02-1.3); BUN 22 mg/dL (8-23); BUN/CREATININE RATIO 18 (12-20 (CALC)); CARBON DIOXIDE 27 mmol/l (22-30); CHLORIDE 101 mmol/l (95-108); CREATININE 1.3 mg/dL (0.5-1.0); ESTIMATED GFR 46 ML/MIN (>=90 (CALC)); POTASSIUM 4.4 mmol/l (3.5-5.1); SGOT/AST 36 u/l (9-36); SODIUM 140 mmol/l (137-146); TOTAL PROTEIN 9.7 g/dL (6.3-8.2)
[2024-03-05 01:17] VITALS: BP 156/95
== END 2024-03-05 01:18 | disposition left against medical advice (07) ==
LOC: ED 20:20 → ED-I 23:55 → ED 03-05 01:18
PROVIDERS: Emergency Medicine
DX: R11.2 Nausea with vomiting, unspecified (principal); G62.9 Polyneuropathy, unspecified; J44.9 Chronic obstructive pulmonary disease, unspecified; M54.50 Low back pain, unspecified; I10 Essential (primary) hypertension; F17.200 Nicotine dependence, unspecified, uncomplicated; Z87.440 Personal history of urinary (tract) infections; Z53.29 Procedure and treatment not carried out because of patient's decision for other reasons; R11.10 Vomiting, unspecified; R19.7 Diarrhea, unspecified; M79.672 Pain in left foot; Z20.822 Contact with and (suspected) exposure to COVID-19
CPT/HCPCS: Q9967

== ENCOUNTER 2024-07-19 09:19 | Observation (INO) | payer MEDICARE, MEDICAID ==
[~2024-07-19] VITALS: Ht 157.5 cm; Wt 50.6 kg
[2024-07-19] VITALS (12 sets, daily range): BP systolic 116–144; BP diastolic 74–109
[2024-07-19] MEDS ORDERED: SODIUM CHLORIDE 0.9% 1,000 ML BAG IV ONE (09:45)
[2024-07-19] MEDS ORDERED: ALBUTEROL SULFATE 2.5 MG VIAL NEB ONE (09:45)
[2024-07-19] MEDS ORDERED: IPRATROPIUM-Albuterol 0.5MG-2.5MG/3 ML NEB ONE (09:45)
[2024-07-19] MEDS ORDERED: methylPREDNISolone SODIUM SUCC 125 MG/2 ML SDV IV ONE (09:45)
[2024-07-19] MEDS ORDERED: MAGNESIUM SULFATE HEPTAHYDRATE 50 ML IV ONE (09:45)
[2024-07-19] MEDS ORDERED: Levofloxacin 750 mg Premix 150 ML IV ONE (09:45)
[2024-07-19 10:14] LABS: BASO% 0.6 % (0-3); EOS% 1.1 % (0-8); HEMATOCRIT 38.6 % (37.0-47.0); HEMOGLOBIN 12.5 g/dl (12.0-16.0); IMMATURE GRANULOCYTES 0.1 % (0.0-5.0); LYMPH% 32.1 % (15-41); MEAN CELL VOLUME 81.4 fL CALC (80.0-100.0); MEAN CORPUSCULAR HGB 26.4 pG CALC (26.0-32.0); MEAN CORPUSCULAR HGB CONC 32.4 g/dL CAL (32.0-36.0); MONO% 11.2 % (2-13); NEUT# 3.97 thou/uL (2.00-7.15); NEUT% 54.9 % (42-76); RED BLOOD COUNT 4.74 mill/uL (4.20-5.60)
[2024-07-19 10:14] LABS: URINE BILIRUBIN - DIPSTICK Negative (NEGATIVE); URINE BLOOD DIPSTICK Negative (NEGATIVE); URINE GLUCOSE - DIPSTICK Negative (NEGATIVE); URINE KETONE Negative (NEGATIVE); URINE NITRITE - DIPSTICK Negative (Negative); URINE PH 8.5 (4.5-8.0); URINE PROTEIN - DIPSTICK 30 mg/dL (NEG-TRACE); URINE SPECIFIC GRAVITY 1.015
[2024-07-19 10:15] LABS: URINE COLOR Yellow; URINE LEUK ESTERASE Moderate (NEGATIVE)
[2024-07-19 10:25] LABS: ALBUMIN 4.1 g/dL (3.2-5.0); BILIRUBIN, TOTAL 0.8 mg/dL (0.02-1.3); CREATININE 0.9 mg/dL (0.5-1.0); POTASSIUM 4.4 mmol/l (3.5-5.1)
[2024-07-19 10:31] LABS: TOTAL PROTEIN 7.7 g/dL (6.3-8.2)
[2024-07-19 10:33] LABS: PROTHROMBIN TIME 10.6 SECONDS (9.0-12.5)
[2024-07-19 10:36] LABS: URINE RBC 0-2 RBC/hpf (0-5)
[2024-07-19 10:37] LABS: URINE SQUAMOUS EPITHELIAL CELL FEW EPI/hpf (0-FEW)
[2024-07-19 10:38] LABS: URINE BACTERIA FEW hpf
[2024-07-19] MEDS ORDERED: traMADol HCL 50 MG/TAB PO ONE (11:15)
[2024-07-19] MEDS ORDERED: MORPHINE SULFATE 4 MG/ML VIAL IV ONE (11:20)
[2024-07-19] MEDS ORDERED: ACETAMINOPHEN 325 MG/TAB PO PRN (13:25)
[2024-07-19] MEDS ORDERED: MAGNESIUM HYDROXIDE 30 ML UDC PO PRN (13:25)
[2024-07-19] MEDS ORDERED: IPRATROPIUM-Albuterol 0.5MG-2.5MG/3 ML NEB PRN (13:25)
[2024-07-19] MEDS ORDERED: HYDROcodone 5 MG/Acetaminophen 325 MG/COMBO PO PRN (13:30)
[2024-07-19] MEDS ORDERED: GABAPENTIN 300 MG/CAP PO SCH (15:00)
[2024-07-19] MEDS ORDERED: AZITHROMYCIN 500 MG in SODIUM CHLORIDE 0.9% 250 ML IV SCH (16:00)
[2024-07-19] MEDS ORDERED: NICOTINE TRANSDERMAL 21 MG/PATCH TD SCH (16:00)
[2024-07-19] MEDS ORDERED: ENOXAPARIN SODIUM 40 MG/0.4 ML SYR SC SCH (21:00)
[2024-07-19] MEDS ORDERED: methylPREDNISolone Sod Succ 40 MG/ML SDV IV SCH (21:00)
== END 2024-07-19 18:03 | disposition left against medical advice (07) ==
LOC: ED 09:19 → ED-I 10:07 → ED 12:13 → MS2 12:14
PROVIDERS: Emergency Medicine; ADMIT Internal Medicine; ATTEND Internal Medicine
DX: J44.1 Chronic obstructive pulmonary disease with (acute) exacerbation (principal); G62.9 Polyneuropathy, unspecified; F17.210 Nicotine dependence, cigarettes, uncomplicated; Z20.822 Contact with and (suspected) exposure to COVID-19
CPT/HCPCS: J0456; J0696; J3475

== ENCOUNTER 2024-08-25 07:55 | Emergency (ER) | payer MEDICARE, MEDICAID ==
[~2024-08-25] VITALS: Ht 157.5 cm; Wt 54.4 kg
[2024-08-25 07:58] VITALS: BP 133/87
[2024-08-25 08:00] VITALS: BP 124/91
[2024-08-25] MEDS ORDERED: KETOROLAC TROMETHAMINE 30 MG/ML SDV IM ONE (08:10)
[2024-08-25 08:15] VITALS: BP 131/79
[2024-08-25] MEDS ORDERED: AMITRIPTYLINE H10 MG PO (08:17)
[2024-08-25 08:40] VITALS: BP 131/79
== END 2024-08-25 08:43 | disposition home or self-care (01) ==
LOC: ED 07:55
DX: G62.9 Polyneuropathy, unspecified (principal); F17.200 Nicotine dependence, unspecified, uncomplicated; Z96.82 Presence of neurostimulator